=== PATIENT | male | born 1935 | race Caucasian/White ===

== ENCOUNTER 2016-09-15 14:09 | Inpatient (IN) | payer OTHER, MEDICARE ==
[~2016-09-15] VITALS: Ht 172.7 cm; Wt 71.5 kg
[2016-09-15 17:14] VITALS: BP 150/95; PULSE 70; RESP 18; TEMP 98.2; O2SAT 96
[2016-09-15 19:00] VITALS: BP 138/94; PULSE 69; PULSE 70; RESP 18; TEMP 98.6; O2SAT 95
[2016-09-15 20:00] VITALS: PULSE 68
[2016-09-15] MEDS ORDERED: ACET325T PO (20:08)
[2016-09-15] MEDS ORDERED: SODI0.9I29 IV FLUSH (20:08)
[2016-09-15] MEDS ORDERED: PANT40TA3 PO (20:08)
[2016-09-15] MEDS ORDERED: LEVO150T7 PO (20:08)
[2016-09-15] MEDS ORDERED: LEVO1INJ IV (20:08)
[2016-09-15] MEDS ORDERED: ONDA4SOL PO (20:08)
[2016-09-15] MEDS ORDERED: [UNRECOGNIZED DRUG - CODE] IV (20:28)
[2016-09-15] MEDS ORDERED: ACET20SO3 NEB (20:28)
[2016-09-15] MEDS ORDERED: LANTUS2P SQ (20:28)
[2016-09-15] MEDS ORDERED: LEVA.63I NEB (20:28)
[2016-09-15] MEDS ORDERED: ATOR20TA15 PO (20:28)
[2016-09-15] MEDS ORDERED: APIX5TAB PO (20:28)
[2016-09-15] MEDS ORDERED: FLOR250C PO (20:28)
[2016-09-15] MEDS ORDERED: PROS5TAB PO (20:28)
[2016-09-15] MEDS ORDERED: FURO40TA IV (20:28)
[2016-09-15] MEDS ORDERED: ACET250T3 IV (20:28)
[2016-09-15] MEDS ORDERED: NOVOLOGP2 SQ (20:28)
[2016-09-15 21:00] VITALS: PULSE 68
[2016-09-15 22:00] VITALS: PULSE 70
[2016-09-15 23:00] VITALS: BP 122/80; PULSE 70; RESP 16; TEMP 98.4; O2SAT 97
[2016-09-15] MEDS ORDERED: ONDANSETRON HCL 4 MG/5 ML UDC PO PRN (23:00)
[2016-09-15] MEDS ORDERED: PILL SPLITTER OTHER PRN (23:15)
[2016-09-15] MEDS: methylPREDNISolone SOD SUCC 40 MG/1 ML VIAL IV SCH (23:26)
[2016-09-15] MEDS: SACUBITRIL/VALSARTAN 49 MG-51 MG TAB PO SCH (23:26)
[2016-09-15] MEDS: SOTALOL HCL 80 MG TAB PO SCH (23:27)
[2016-09-16] VITALS (26 sets, daily range): BP systolic 102–144; BP diastolic 71–94; PULSE 66–71; RESP 16–19; TEMP 97.3–98.6; O2SAT 92–99
--- NOTE | 2016-09-16 00:40 | HHI.HP ---
[facility] Service [facility] Primary Care Physician Rupal Okeefe MD Admission Diagnosis Diagnoses: (1) Non-sustained ventricular tachycardia (2) History of pneumonia Chief Complaint: ventricular tachycardia Travel History International Travel<30 Days: No Contact w/Intl Traveler <30 Da: No History of Present Illness Mr. Teran is an 81 year-old male with a past medical history of recent respiratory failure secondary to pneumonia, cardiomyopathy with EF 15 - 19%, CAD , cardiac stents, and AICD/pacemaker who transferred from [facility] for recurrent ventricular tachycardia s/p AICD adjustments and discharge. The patient has been seen by Dr. Calderon, publicist. The patient is seen in his hospital room. The patient was admitted to [facility] 09/03 for acute respiratory failure and bilateral pneumonia and required bipap on admission - didn't require intubation. The patient was hospitalized in May and June 2016 with similar symptoms. 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 The patient had slow ventricular tachycardia for past two nights. The AICD tech made adjustments to have AICD fire at a lower heart rate on the first night and on the second night, the patient required sedation and the tech for AICD set the device to deliver a shock with successful rhythm conversion. The patient is here to determine if the v tach can be controlled with lower AICD threshold and medications or whether he will he require an ablation. The patient and his were previously told ablation would be too dangerous but, now, without amiodarone, there's some concern that ablation may be mandatory. A bronchoscopy has not been performed; Dr. Gonsales and Dr. Briceño who saw the patient at [facility] felt the bronchoscopy would be too risky. Therefore, there has been no tissue diagnosis of pulmonary fibrosis. Dr. Galindo sees the patient as an outpatient but does not round at [facility]. The patient adamantly denies any history of COPD. Last stress test was summer 2015. Generalized weakness from May and June 2016 hospitalizations. Reports fatigue but denies fever. Reports chronic cough and chronic "phlegm" production ; patient is back at baseline. Denies diabetes mellitus, COPD, liver problems, blood clots: PE, CVA, DVT; hypertension has resolved- off medications for BP x several weeks. Review of Systems Except as stated in HPI: all other systems reviewed are Neg Past Family Social History Past Medical History Ventricular tachycardia - sustained Cardiomyopathy - EF 15 - 19% Atrial fibrillation - takes Eliquis Sick sinus syndrome [place] 2006 - PM Hypothyroidism Renal insufficiency BPH Patient denies history of COPD . Past Surgical History Coronary stents x 5 PM 2006 AICD/PM 2009 . Reported Medications Reported Meds & Active Scripts Active Reported Proscar (Finasteride) 5 Mg Tab 5 Mg PO DAILY Do not crush. Xopenex Neb (Levalbuterol HCl) 0.63 Mg/3 Ml Neb 0.63 Mg NEB Q4HR NEB Methylprednisolone Sod Succinate Inj (Methylprednisolone Sodium Succinate) 40 Mg Inj 40 Mg IV Q12H Novolog Inj (Insulin Aspart) 1,000 Unit/10 Ml Vial 0 SQ DIRECTED Sliding Scale as directed. Lantus Inj (Insulin Glargine) 1,000 Unit/10 Ml Vial 10 Units SQ HS Eliquis (Apixaban) 5 Mg Tab 5 Mg PO BID Acetylcysteine Liq/Neb (Acetylcysteine) 200 mg/ml Soln 4 Ml NEB BID NEB Acetazolamide 250 Mg Tab 500 Mg IV DAILY Florastor (Saccharomyces Boulardii) 250 Mg Cap 500 Mg PO BID Furosemide 40 Mg Tab 40 Mg IV 06,18 Atorvastatin (Atorvastatin Calcium) 20 Mg Tab 20 Mg PO HS Levofloxacin Inj 250 Mg/50 Ml Bagp 250 Mg IV Q24H Sodium Chloride Flush (Sodium Chloride) 0.9 % Inj 2 Ml IV FLUSH BID Levothyroxine (Levothyroxine Sodium) 150 Mcg Tab 150 Mcg PO DAILY PRN Acetaminophen 325 Mg Tab 325 Mg PO Q4-6H PRN Ondansetron Liq (Ondansetron HCl) 4 Mg/5 Ml Soln 4 Mg PO Q8H PRN Pantoprazole (Pantoprazole Sodium) 40 Mg Tab 40 Mg PO DAILY 30 Days Allergies: Coded Allergies: Penicillin (Verified Allergy, Unknown, UNSURE, 09/15/16) Active Ordered Medications Current Medications Acetazolamide (Diamox) 500 mg DAILY PO ; Start 09/16/16 at 09:00 Atorvastatin Calcium (Lipitor) 20 mg HS PO ; Start 09/16/16 at 21:00 Finasteride (Proscar) 5 mg DAILY PO ; Start 09/16/16 at 09:00 Furosemide (Lasix) 40 mg DAILY@06,18 PO ; Start 09/16/16 at 06:00 Insulin Detemir (Levemir Inj) 10 units HS SQ ; Start 09/16/16 at 21:00 Levothyroxine Sodium (Synthroid) 150 mcg DAILY@0600 PO ; Start 09/16/16 at 06:00 Methylprednisolone Sodium Succinate (SoluMEDROL INJ) 40 mg Q12HR IV Last administered on 09/15/16 23:26; Start 09/15/16 at 23:00 Ondansetron HCl (Zofran Liq) 4 mg Q8H PRN PO NAUSEA OR VOMITING; Start at 23:00 Pantoprazole Sodium (Protonix) 40 mg DAILY PO ; Start 09/16/16 at 09:00 Non-Formulary Medication 500 mg BID PO NS; Start 09/16/16 at 09:00; Status UNV Sacubitril/ Valsartan (Entresto 49-51 Mg) 1 tab BID PO Last administered on 23:26; Start 09/15/16 at 23:00 Sotalol HCl (Betapace) 120 mg Q12HR PO Last administered on 09/15/16 23:27; Start 09/15/16 at 23:00 Miscellaneous (Pill Splitter) 1 ea UNSCH PRN OTHER SEE LABEL COMMENTS; Start at 23:15 . Family History Mother CVA, diabetes Father CHF . Social History Tobacco: never smoked . Physical Exam Vital Signs Vital Signs Date Time Temp Pulse Resp B/P Pulse Ox O2 Delivery O2 Flow Rate FiO2 09/15/16 23:00 98.4 70 16 122/80 97 09/15/16 19:00 98.6 70 18 138/94 95 09/15/16 17:14 98.2 70 18 150/95 96 Physical Exam GENERAL: This is a pleasant, extremely [place] elderly male patient, in no apparent distress. SKIN: No rashes, ecchymoses or lesions. Cool and dry. HEAD: Atraumatic. Normocephalic. EYES: No scleral icterus. No injection or drainage. ENT: Nose without bleeding, purulent drainage. NECK: Trachea midline. No JVD or lymphadenopathy. CARDIOVASCULAR: Regular rate and rhythm without murmurs, gallops, or rubs. RESPIRATORY: Breath sounds equal bilaterally. No wheezes or rhonchi. Bibasilar crepitations at the base of lungs. GASTROINTESTINAL: Abdomen soft, non-tender, nondistended. No guarding. : mazariegos catheter in place draining clear yellow urine. MUSCULOSKELETAL: Extremities without clubbing, cyanosis, or edema. No calf tenderness. NEUROLOGICAL: Awake and alert. Motor and sensory grossly within normal limits. Normal speech. . Assessment and Plan Problem List: (1) Non-sustained ventricular tachycardia ICD Code: I47.2 Status: Resolved (2) History of pneumonia ICD Code: Z87.01 Status: Resolved Assessment and Plan Non-Sustained ventricular tachycardia - Cardiology consulted - Dr. 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 Galindo - patient doesn't appear to clinically have pneumonia at this time; will not place on antibiotics - defer further management to Dr. Galindo Sacral skin tears x 3 - consult wound care nurse Mazariegos Catheter x 13 days - will need a voiding trial DVT prophylaxis -SCDs Written by Shaye Carpenter, acting as scribe for Dr. Wilson on 09/16/16 at 00:57. The documentation accurately reflects the work performed [id number] by me on [id number] patient was changed to inpatient status Discussed Condition With RN, patient, and patient's . Shaye Carpenter Sep 16, 2016 00:40 Marc Wilson MD Sep 23, 2016 08:52
[2016-09-16] MEDS: FUROSEMIDE 40 MG TAB PO SCH ×2 (05:32→17:13)
[2016-09-16] MEDS: LEVOTHYROXINE SODIUM 150 MCG TAB PO SCH (05:32)
[2016-09-16 05:55] LABS: AUTOMATED NEUTROPHIL # 22.3 TH/MM3 (1.8-7.7); EOSINOPHIL % 0.1 % (0.0-4.0); HEMATOCRIT 36.7 % (39.0-51.0); HEMO FLAGS DIFF FINAL; LYMPH % 1.3 % (9.0-44.0); LYMPHOCYTE # 0.3 TH/MM3 (1.0-4.8); MEAN CELL VOLUME 87.1 FL (80.0-100.0); MEAN CORPUSCULAR HEMOGLOBIN 28.4 PG (27.0-34.0); MEAN CORPUSCULAR HGB CONC 32.6 % (32.0-36.0); MONO % 2.5 % (0.0-8.0); NEUT % 96.1 % (16.0-70.0); PLATELET COUNT 126 TH/MM3 (150-450); RED BLOOD COUNT 4.21 MIL/MM3 (4.50-5.90); RED CELL DISTRIBUTION WIDTH 17.6 % (11.6-17.2); WHITE BLOOD COUNT 23.2 TH/MM3 (4.0-11.0)
[2016-09-16 06:09] LABS: INTERNATIONAL NORMALIZED RATIO 1.2 RATIO; PROTHROMBIN TIME - PATIENT 13.5 SEC (9.8-11.6)
[2016-09-16 06:19] LABS: ALT (GPT) 48 U/L (12-78); ANION GAP 9 MEQ/L (5-15); AST (GOT) 20 U/L (15-37); BICARBONATE 26.5 MEQ/L (21.0-32.0); BLOOD UREA NITROGEN 44 MG/DL (7-18); CHLORIDE 105 MEQ/L (98-107); GLOMERULAR FILTRATION RATE 66 ML/MIN (>89); POTASSIUM 3.5 MEQ/L (3.5-5.1); SODIUM (NA) 140 MEQ/L (136-145)
[2016-09-16 06:21] LABS: ALKALINE PHOSPHATASE 75 U/L (45-117); TOTAL BILIRUBIN ADULT 0.6 MG/DL (0.2-1.0)
--- NOTE | 2016-09-16 06:22 | MB ---
cc: LATHA CHARLTON M.D. DATE OF CONSULTATION 09/15/2016 REASON FOR CONSULTATION Ventricular tachycardia. HISTORY OF PRESENT ILLNESS Mr. Teran is an 81-year-old gentleman with a history of coronary artery disease, congestive heart failure, cardiomyopathy, previous nuclear study in February of 2016 with an ejection fraction of around 19%. The gentleman was previously evaluated in my office at the request of for ventricular tachycardia ablation. At that point the gentleman declined. He was concerned about bleeding and the risks of the surgery. In the past couple of weeks the gentleman was admitted on multiple occasions. He was at [facility] for at least 12 days due to pneumonia. He had two episodes of ventricular tachycardia that did not respond to ATP, that required shock, one of them last night. I was called by to discuss with him. Subsequently the gentleman was transferred to this center. I was called for evaluation. I did talk to the and the children. She was very, very anxious. She is concerned about defibrillatory shock. I did explain to her that just called me today to discuss the case. I did recommend that the patient be medically managed at [facility] but ultimately the patient was transferred to my service. I was not able to schedule the patient for the past 2 weeks and, for now because the patient has infection, on antibiotics, he will need evaluation by Pulmonary as well by Internal Medicine before any procedure attempted. Also, the gentleman took Eliquis this morning. We will have to wait at least 48 hours before any procedure attempted. The chart was reviewed. The patient was evaluated. ALLERGY PENICILLIN. SOCIAL HISTORY Negative for smoking and drinking. FAMILY HISTORY Noncontributory to his current medical condition. MEDICATIONS 1. Finasteride. 2. Methylprednisone. 3. Acetaminophen. 4. Eliquis. 5. Proscar. 6. Atorvastatin. 7. Insulin. 8. Protonix. 9. Levaquin. 10. He was on piperacillin and tazobactam also. REVIEW OF SYSTEMS He refers no chest pain or discomfort. PHYSICAL EXAMINATION GENERAL: Alert, fully oriented. VITAL SIGNS: His blood pressure is 150/91, pulse is 70, respiratory rate 18. LUNGS: Ventilated. CARDIOVASCULAR: S1, S2. Regular. No gallop. There is a systolic ejection murmur. ABDOMEN: Soft. No mass. No bruit. EXTREMITIES: No edema. ELECTROCARDIOGRAM Performed at [facility], indicated V-pacing. ASSESSMENT AND RECOMMENDATIONS Mr. Teran was in [facility] for close to two weeks with pneumonia, heart failure, COPD. He is on antibiotics. He was no Lovenox, Eliquis initiated. Apparently the gentleman was kept n.p.o. by the staff at [facility] without any discussion with me. I had a very, very long conversation. I spent over an hour discussing the case with the patient and his . His is concerned about the patient morbidity, if that happens who will take care of him. I explained the patient is in the hospital. Also the patient was seen in the past and the patient refused ventricular tachycardia ablation. Because of these episodes of recurrent tachyarrhythmia and the gentleman has an ejection fraction between 13-19% and he is not able to tolerate amiodarone. Amiodarone was discontinued because of pulmonary issues. At this point I am going to initiate sotalol at 120 mg twice a day. Blood pressure is high. The patient was already initiated on in February. Apparently he is not on the medication and will be initiated. I need a BMP as well as CBC. Possible nuclear stress study will be ordered in the morning. For now, medical management. Ablation will be performed if the gentleman is in ventricular tachycardia at some point now. MD SHERRI Hassan/LUDMILA /11:06 PM /5:52 AM
--- NOTE | 2016-09-16 08:36 | HHI.PR ---
Subjective Remarks Tired Objective Vital Signs Date Time Temp Pulse Resp B/P Pulse Ox O2 Delivery O2 Flow Rate FiO2 09/16/16 06:00 69 09/16/16 05:00 69 09/16/16 04:00 69 09/16/16 03:00 69 09/16/16 03:00 98.0 69 17 115/76 95 09/16/16 02:00 71 09/16/16 01:00 68 09/16/16 00:00 70 09/15/16 23:00 70 09/15/16 23:00 98.4 70 16 122/80 97 09/15/16 22:00 70 09/15/16 21:00 68 09/15/16 20:00 68 09/15/16 19:00 98.6 70 18 138/94 95 09/15/16 19:00 69 09/15/16 17:14 98.2 70 18 150/95 96 I/O 09/15/16 09/15/16 09/15/16 09/16/16 09/16/16 09/16/16 07:00 15:00 23:00 07:00 15:00 23:00 Intake Total 835 ml Output Total 700 ml Balance 135 ml Intake Oral 835 ml Output Urine Total 700 ml Result Diagram: 09/16/1652009/16/16520 Imaging Alert, fully oriented Lungs: ventilated Heart: S1, S2 regular, no gallop Abdomen: soft, no mass Ext: no edema Current Medications Medications (Trade) Dose Ordered Sig/Taylor Route Start Time Stop Time Status Last Admin (Diamox) 500 mg DAILY PO 09/16/16 09:00 (Lipitor) 20 mg HS PO 09/16/16 21:00 (Proscar) 5 mg DAILY PO 09/16/16 09:00 (Lasix) 40 mg DAILY@06,18 PO 09/16/16 06:00 09/16/16 05:32 (Levemir Inj) 10 units HS SQ 09/16/16 21:00 (Synthroid) 150 mcg DAILY@0600 PO 09/16/16 06:00 09/16/16 05:32 (SoluMEDROL INJ) 40 mg Q12HR IV 09/15/16 23:00 09/15/16 23:26 (Zofran Liq) 4 mg Q8H PRN PO 09/15/16 23:00 (Protonix) 40 mg DAILY PO 09/16/16 09:00 Patient Own Medication PT OWN MED: [Florast... BID PO 09/17/16 09:00 Future Hold (Entresto 49-51 Mg) 1 tab BID PO 09/15/16 23:00 09/15/16 23:26 (Betapace) 120 mg Q12HR PO 09/15/16 23:00 09/15/16 23:27 (Pill Splitter) 1 ea UNSCH PRN OTHER 09/15/16 23:15 Assessment and Plan Problem List: (1) Sustained ventricular tachycardia Status: Acute Plan: Stable. No VT recorded last night. Tolerating sotalol very well. Toprol XL will be added For now, medical management If there is an other episode then ablation will be considered. (2) Congestive heart failure Status: Acute Plan: On optimal medical management now Follow up by pulmonary Case again discussed extensively with him and . Martin Calderon MD Sep 16, 2016 08:35
--- NOTE | 2016-09-16 09:06 | MB ---
cc: JOSIE GALINDO M.D. DATE OF CONSULTATION 09/16/2016 REASON FOR CONSULTATION COPD. Pulmonary fibrosis. HISTORY OF PRESENT ILLNESS Mr. Teran is an 81-year-old male with known history of COPD, pulmonary fibrosis, congestive heart failure of severe degree, ejection fraction between 15 and 19%, admitted to [facility] in [place] for pneumonia treated with antibiotics with improvement. However, he did have recurrent ventricular arrhythmia, transferred to this hospital for same. He is followed by Dr. Calderon who is seeing him at this time. PAST MEDICAL HISTORY 1. COPD. 2. Pulmonary fibrosis. 3. Atrial fibrillation. 4. Congestive heart failure. 5. Ventricular tachycardia. 6. Hypothyroidism. 7. Renal insufficiency. 8. BPH. 9. Hypothyroidism. PAST SURGICAL HISTORY Had coronary artery bypass surgery in the past. MEDICATIONS 1. Xopenex. 2. Proscar. 3. IV steroids. 4. Insulin therapy. 5. Eliquis. 6. Lasix. 7. Atorvastatin. 8. Levofloxacin. 9. Levothyroxine. 10. Pantoprazole. ALLERGIES PENICILLIN. FAMILY HISTORY Noncontributory. SOCIAL HISTORY Never smoked, never drank. FAMILY HISTORY Positive for heart disease, stroke, diabetes. REVIEW OF SYSTEMS A 12-point review of systems as per HPI and Past History, otherwise negative. PHYSICAL EXAMINATION VITAL SIGNS: Temperature 98, pulse 70, respirations 18, blood pressure 150/70, oxygen saturation 95% on 2 liters oxygen nasal cannula. HEENT: Exam unremarkable. Eyes without icterus. NECK: Without adenopathy or thyroid enlargement. Central trachea. CHEST: A few scattered rhonchi as bases. CARDIAC EXAM: PMI 6th left space outside the midclavicular line. A 2/6 ejection systolic murmur left sternal border. S1-S2 audible. Positive S3. ABDOMEN: Lax. Bowel sounds audible. Liver two fingerbreadths below the right costal margin. EXTREMITIES: Trace edema. DATA Chest x-ray pending. White count 23,000, hemoglobin 12, hematocrit 36, platelets 126,000. Sodium 140, potassium 3.5, BUN 44, creatinine 1.0. IMPRESSION 1. Pneumonia, improved. 2. Congestive heart failure. 3. Ventricular arrhythmia. 4. COPD. 5. Mild renal insufficiency. 6. Diabetes mellitus. PLAN 1. The patient will be maintained on oxygen therapy as needed. 2. We will follow up his chest x-ray, obtain pulmonary functions. 3. His white count need be followed and, depending on progress, proceed accordingly. 4. He is followed by Cardiology for his cardiac arrhythmia. I do thank you for asking me to partake in Mr. Teran's care. Sincerely Josie Galindo MD WWW/LUDMILA /8:17 AM /8:42 AM
[2016-09-16 10:13] LABS: BLOOD GAS BASE EXCESS -3.4 mmol/L (-2-2); BLOOD GAS CARBOXYHEMOGLOBIN 2.1 % (0-4); BLOOD GAS HCO3 20 mmol/L (22-26); BLOOD GAS O2 HGB SATURATION 91 % (90-100); BLOOD GAS OXYGEN CONTENT 17.5 Vol % (12.0-20.0); BLOOD GAS PCO2 31 mmHg (38-42); BLOOD GAS PO2 71 mmHg (61-120); BLOOD GAS TOTAL HGB 13.7 G/DL (12.0-16.0); CRITICAL VALUE NO; DRAW SITE RT RADIAL; FIO2 21 %; NUMBER OF ARTERIAL PUNCTURES 1; STAT NO; TEMP CORR TO 98.6; ULNAR PULSE PRESENT
[2016-09-16] MEDS: methylPREDNISolone SOD SUCC 40 MG/1 ML VIAL IV SCH ×2 (10:21→22:06)
[2016-09-16] MEDS: FINASTERIDE 5 MG TAB PO SCH (10:21)
[2016-09-16] MEDS: acetaZOLAMIDE 250 MG TAB PO SCH (10:22)
[2016-09-16] MEDS: SACUBITRIL/VALSARTAN 49 MG-51 MG TAB PO SCH ×2 (10:23→22:07)
[2016-09-16] MEDS: PANTOPRAZOLE SOD 40 MG DELAYED RELEASE TAB PO SCH (10:23)
[2016-09-16] MEDS: METOPROLOL SUCCINATE 50 MG EXTENDED RELEASE TAB PO SCH (10:23)
[2016-09-16] MEDS: SOTALOL HCL 80 MG TAB PO SCH ×2 (10:23→22:06)
--- NOTE | 2016-09-16 10:35 | RADRPT ---
EXAM DATE/TIME: 09/16/2016 09:45 [place] COMPARISON: No previous studies available for comparison. INDICATIONS : Short of breath. MEDICAL HISTORY : Chronic obstructive pulmonary disease. SURGICAL HISTORY : Pacemaker. ENCOUNTER: Initial ACUITY: 1 day PAIN SCORE: 0/10 LOCATION: Bilateral chest FINDINGS: The heart is moderately enlarged. supervisor coffee box superimposes upon the left chest and there are 3 electrodes extending into the heart. Multifocal patchy areas of non-consolidative infiltrate throu ghout the right lung and in the left lower lung. No obscuration of either hemidiaphragm or either he art border. Mild tortuosity descending thoracic aorta. CONCLUSION: Patchy areas of infiltrate throughout the right lung and left lower lung and cardiomegaly. The appea anderson is nonspecific and could be due to either infectious or cardiogenic causes. Harry Be MD on September 16, 2016 at 10:33 Board Certified Radiologist. This report was verified electronically.
--- NOTE | 2016-09-16 13:52 | HHI.PR ---
Subjective Remarks Multiple pacer spikes seenon telemetry patient denies cp patient c/o dyspnea on exertion Patient having heart rate down to 40's Objective Vitals Vital Signs Date Time Temp Pulse Resp B/P Pulse Ox O2 Delivery O2 Flow Rate FiO2 09/16/16 13:06 69 09/16/16 12:00 68 09/16/16 11:00 97.3 70 18 102/72 96 09/16/16 11:00 71 09/16/16 10:00 68 09/16/16 09:00 70 09/16/16 08:30 97.3 66 19 144/94 92 09/16/16 08:00 69 09/16/16 07:00 69 09/16/16 06:00 69 09/16/16 05:00 69 09/16/16 04:00 69 09/16/16 03:00 69 09/16/16 03:00 98.0 69 17 115/76 95 09/16/16 02:00 71 09/16/16 01:00 68 09/16/16 00:00 70 09/15/16 23:00 70 09/15/16 23:00 98.4 70 16 122/80 97 09/15/16 22:00 70 09/15/16 21:00 68 09/15/16 20:00 68 09/15/16 19:00 98.6 70 18 138/94 95 09/15/16 19:00 69 09/15/16 17:14 98.2 70 18 150/95 96 I/O 09/15/16 09/15/16 09/15/16 09/16/16 09/16/16 09/16/16 07:00 15:00 23:00 07:00 15:00 23:00 Intake Total 835 ml Output Total 700 ml Balance 135 ml Intake Oral 835 ml Output Urine Total 700 ml Result Diagram: 09/16/16 0521 09/16/16 0521 Imaging Last Impressions Chest X-Ray 09/16/16 0000 Signed Impressions: Service Date/Time: August 09:45 - CONCLUSION: Patchy areas of infiltrate throughout the right lung and left lower lung and cardiomegaly. The appearance is nonspecific and could be due to either infectious or cardiogenic causes. Harry Be MD Objective Remarks GENERAL: This is a pleasant, extremely [place] elderly male patient, in no apparent distress. SKIN: Two small fissures to medial gluteal cleft that are moisture and friction related.Periwound noted with denuded blanchable erythema. Patient also noted with small area of resolving moisture related partial thickness skin loss to R medial buttock.No pressure injuries seen at this time. HEAD: Atraumatic. Normocephalic. EYES: No scleral icterus. No injection or drainage. ENT: Nose without bleeding, purulent drainage. NECK: Trachea midline. No JVD or lymphadenopathy. CARDIOVASCULAR: Regular rate and rhythm without murmurs, gallops, or rubs. RESPIRATORY: Breath sounds equal bilaterally. No wheezes or rhonchi. Bibasilar crepitations at the base of lungs. GASTROINTESTINAL: Abdomen soft, non-tender, nondistended. No guarding. : mazariegos catheter in place draining clear yellow urine. MUSCULOSKELETAL: Extremities without clubbing, cyanosis, or edema. No calf tenderness. NEUROLOGICAL: Awake and alert. Motor and sensory grossly within normal limits. Normal speech. Medications and IVs Current Medications Medications (Trade) Dose Ordered Sig/Taylor Route Start Time Stop Time Status Last Admin (Diamox) 500 mg DAILY PO 09/16/16 09:00 09/16/16 10:22 (Lipitor) 20 mg HS PO 09/16/16 21:00 (Proscar) 5 mg DAILY PO 09/16/16 09:00 09/16/16 10:21 (Lasix) 40 mg DAILY@06,18 PO 09/16/16 06:00 09/16/16 05:32 (Levemir Inj) 10 units HS SQ 09/16/16 21:00 (Synthroid) 150 mcg DAILY@0600 PO 09/16/16 06:00 09/16/16 05:32 (SoluMEDROL INJ) 40 mg Q12HR IV 09/15/16 23:00 09/16/16 10:21 (Zofran Liq) 4 mg Q8H PRN PO 09/15/16 23:00 (Protonix) 40 mg DAILY PO 09/16/16 09:00 09/16/16 10:23 Patient Own Medication PT OWN MED: [Florast... BID PO 09/17/16 09:00 Future Hold (Entresto 49-51 Mg) 1 tab BID PO 09/15/16 23:00 09/16/16 10:23 (Betapace) 120 mg Q12HR PO 09/15/16 23:00 09/16/16 10:23 (Pill Splitter) 1 ea UNSCH PRN OTHER 09/15/16 23:15 (Toprol Xl) 50 mg DAILY PO 09/16/16 09:00 09/16/16 10:23 Urinary Catheter: Yes Assessment to: Remove Vascular Central Line Catheter: No A/P Problem List: (1) Non-sustained ventricular tachycardia ICD Code: I47.2 Status: Acute Plan: Non-Sustained ventricular tachycardia - Cardiology consulted - appreciate Dr Calderon recommendations - Stable. No VT recorded last night. - Tolerating sotalol very well. - Toprol XL added by cardiology. (2) History of pneumonia ICD Code: Z87.01 Status: Resolved Plan: Patient has leukocytosis of 23 Patchy area of infiltrate throughout the right lung, left lower lung cardiomegaly. Pulmonary following. Appreciate recommendations. Routine supplemental oxygen to keep oxygen saturation more than 92% (3) Wound of skin ICD Code: R23.8 Status: Acute Plan: - appreciate wound care evaluation Two small fissures to medial gluteal cleft that are moisture and friction related.Periwound noted with denuded blanchable erythema. Patient also noted with small area of resolving moisture related partial thickness skin loss to R medial buttock.No pressure injuries seen. - Calazime barrier cream bid and leave wound open to air. (4) Hypothyroidism ICD Code: E03.9 Status: Acute Plan: On levothyroxine. Check TSH. (5) Atrial fibrillation ICD Code: I48.91 Status: Chronic Plan: rate controlled. Continue with sotalol, metoprolol XL. Ventricular fibrillation with multiple pacer spikes. Follow-up cranial treatment recommendations. Lul Herron MD Sep 16, 2016 13:52
[2016-09-16] MEDS: ATORVASTATIN 20 MG TAB PO SCH (22:07)
[2016-09-16] MEDS: INSULIN DETEMIR 100 UNITS/ML VIAL SQ SCH (22:16)
[2016-09-17] VITALS (25 sets, daily range): BP systolic 102–123; BP diastolic 75–86; PULSE 68–94; RESP 16–18; TEMP 97.5–97.8; O2SAT 95–97
[2016-09-17] MEDS: FUROSEMIDE 40 MG TAB PO SCH ×2 (05:34→17:40)
[2016-09-17] MEDS: LEVOTHYROXINE SODIUM 150 MCG TAB PO SCH (05:34)
[2016-09-17 07:08] LABS: AUTOMATED NEUTROPHIL # 19.2 TH/MM3 (1.8-7.7); BASOPHIL % 0.2 % (0.0-2.0); HEMATOCRIT 37.3 % (39.0-51.0); LYMPH % 2.2 % (9.0-44.0); LYMPHOCYTE # 0.5 TH/MM3 (1.0-4.8); MEAN CELL VOLUME 86.3 FL (80.0-100.0); MEAN CORPUSCULAR HEMOGLOBIN 29.1 PG (27.0-34.0); MEAN CORPUSCULAR HGB CONC 33.7 % (32.0-36.0); NEUT % 94.6 % (16.0-70.0); PLATELET COUNT 113 TH/MM3 (150-450); RED BLOOD COUNT 4.33 MIL/MM3 (4.50-5.90); RED CELL DISTRIBUTION WIDTH 17.5 % (11.6-17.2); WHITE BLOOD COUNT 20.4 TH/MM3 (4.0-11.0)
[2016-09-17 07:32] LABS: HEMO FLAGS AUTO DIFF
[2016-09-17 07:52] LABS: ALKALINE PHOSPHATASE 72 U/L (45-117); ALT (GPT) 57 U/L (12-78); ANION GAP 7 MEQ/L (5-15); AST (GOT) 11 U/L (15-37); BLOOD UREA NITROGEN 40 MG/DL (7-18); CHLORIDE 103 MEQ/L (98-107); GLOMERULAR FILTRATION RATE 79 ML/MIN (>89); MAGNESIUM 2.6 MG/DL (1.5-2.5); POTASSIUM 3.4 MEQ/L (3.5-5.1); SODIUM (NA) 139 MEQ/L (136-145); TOTAL BILIRUBIN ADULT 0.7 MG/DL (0.2-1.0)
[2016-09-17 08:23] LABS: BANDS 2 % (0-6); METAMYELOCYTES 2 % (0-1); NEUTROPHIL # MANUAL DIFF 18.8 TH/MM3 (1.8-7.7); POLYS (SEG NEUTROPHILS) 88 % (16-70); WBC DIFF SAMPLE 100
[2016-09-17 08:25] LABS: PLATELET ESTIMATE SMEAR LOW (NORMAL); PLATELET MORPHOLOGY NORMAL (NORMAL)
[2016-09-17 08:26] LABS: SCAN/DIFF FINAL DIFF MANUAL
[2016-09-17] MEDS ORDERED: FLORASTOR PO SCH (09:00)
[2016-09-17] MEDS: acetaZOLAMIDE 250 MG TAB PO SCH (09:27)
[2016-09-17] MEDS: methylPREDNISolone SOD SUCC 40 MG/1 ML VIAL IV SCH (09:27)
[2016-09-17] MEDS: FINASTERIDE 5 MG TAB PO SCH (09:28)
[2016-09-17] MEDS: PANTOPRAZOLE SOD 40 MG DELAYED RELEASE TAB PO SCH (09:28)
[2016-09-17] MEDS: METOPROLOL SUCCINATE 50 MG EXTENDED RELEASE TAB PO SCH (09:28)
[2016-09-17] MEDS: SOTALOL HCL 80 MG TAB PO SCH ×2 (09:29→21:16)
[2016-09-17] MEDS: SACUBITRIL/VALSARTAN 49 MG-51 MG TAB PO SCH ×2 (09:29→21:16)
[2016-09-17] MEDS ORDERED: POTASSIUM CHLORIDE 20 MEQ CONTROLLED RELEASE TAB PO ONE (12:30)
--- NOTE | 2016-09-17 13:05 | HHI.PR ---
Subjective Remarks fu for VT, leukocytosis, pulmonary fibrosis, COPD Patient's is very upset because she feels that her questions have answered Patient's states she feels her is getting weaker She also states that last night he had an episode where he was ahaving abdominal spasms, this was resolved after people from [employer] came and fixed the issue. Patient denies cp/sob no fevers or chills reported no further abdominal pain Objective Vitals Vital Signs Date Time Temp Pulse Resp B/P Pulse Ox O2 Delivery O2 Flow Rate FiO2 09/17/16 08:00 97.5 70 18 123/86 95 09/17/16 07:00 70 09/17/16 06:00 70 09/17/16 05:00 69 09/17/16 04:00 69 09/17/16 03:00 69 09/17/16 03:00 97.8 70 17 112/76 96 09/17/16 02:00 79 09/17/16 01:00 94 09/17/16 00:00 68 09/16/16 23:00 98.4 69 18 114/71 94 09/16/16 23:00 70 09/16/16 22:00 68 09/16/16 21:00 68 09/16/16 20:00 68 09/16/16 19:00 98.6 70 18 103/72 99 09/16/16 19:00 70 09/16/16 18:00 68 09/16/16 17:04 69 09/16/16 16:00 68 09/16/16 15:50 98.5 70 16 105/73 99 09/16/16 15:00 69 09/16/16 14:14 69 09/16/16 13:06 69 I/O 09/16/16 09/16/16 09/16/16 09/17/16 09/17/16 09/17/16 07:00 15:00 23:00 07:00 15:00 23:00 Intake Total 835 ml 360 ml 480 ml Output Total 700 ml 1150 ml 450 ml Balance 135 ml -790 ml 30 ml Intake Oral 835 ml 360 ml 480 ml Output Urine Total 700 ml 1150 ml 450 ml # Bowel Movements 1 Result Diagram: 09/17/16 0633 09/17/16 0633 Imaging Last Impressions Chest X-Ray 09/16/16 0000 Signed Impressions: Service Date/Time: August 09:45 - CONCLUSION: Patchy areas of infiltrate throughout the right lung and left lower lung and cardiomegaly. The appearance is nonspecific and could be due to either infectious or cardiogenic causes. Harry Be MD Objective Remarks GENERAL: This is a pleasant, extremely [place] elderly male patient, in no apparent distress, eating lunch. SKIN: Two small fissures to medial gluteal cleft that are moisture and friction related.Periwound noted with denuded blanchable erythema. Patient also noted with small area of resolving moisture related partial thickness skin loss to R medial buttock.No pressure injuries seen at this time. HEAD: Atraumatic. Normocephalic. EYES: No scleral icterus. No injection or drainage. ENT: Nose without bleeding, purulent drainage. NECK: Trachea midline. No JVD or lymphadenopathy. CARDIOVASCULAR: Regular rate and rhythm without murmurs, gallops, or rubs. RESPIRATORY: Breath sounds equal bilaterally. No wheezes or rhonchi. Bibasilar crepitations at the base of lungs. GASTROINTESTINAL: Abdomen soft, non-tender, nondistended. No guarding. : mazariegos catheter in place draining clear yellow urine. MUSCULOSKELETAL: Extremities without clubbing, cyanosis, or edema. No calf tenderness. NEUROLOGICAL: Awake and alert. Motor and sensory grossly within normal limits. Normal speech. Procedures None Medications and IVs Current Medications Medications (Trade) Dose Ordered Sig/Taylor Route Start Time Stop Time Status Last Admin (Diamox) 500 mg DAILY PO 09/16/16 09:00 09/17/16 09:27 (Lipitor) 20 mg HS PO 09/16/16 21:00 09/16/16 22:07 (Proscar) 5 mg DAILY PO 09/16/16 09:00 09/17/16 09:28 (Lasix) 40 mg DAILY@06,18 PO 09/16/16 06:00 09/17/16 05:34 (Levemir Inj) 10 units HS SQ 09/16/16 21:00 09/16/16 22:16 (Synthroid) 150 mcg DAILY@0600 PO 09/16/16 06:00 09/17/16 05:34 (SoluMEDROL INJ) 40 mg Q12HR IV 09/15/16 23:00 09/17/16 09:27 (Zofran Liq) 4 mg Q8H PRN PO 09/15/16 23:00 (Protonix) 40 mg DAILY PO 09/16/16 09:00 09/17/16 09:28 Patient Own Medication PT OWN MED: [Florast... BID PO 09/17/16 09:00 Hold (Entresto 49-51 Mg) 1 tab BID PO 09/15/16 23:00 09/17/16 09:29 (Betapace) 120 mg Q12HR PO 09/15/16 23:00 09/17/16 09:29 (Pill Splitter) 1 ea UNSCH PRN OTHER 09/15/16 23:15 (Toprol Xl) 50 mg DAILY PO 09/16/16 09:00 09/17/16 09:28 Urinary Catheter: No Vascular Central Line Catheter: No A/P Problem List: (1) Non-sustained ventricular tachycardia ICD Code: I47.2 Status: Acute Plan: Non-Sustained ventricular tachycardia - Cardiology consulted - appreciate Dr Calderon recommendations - Stable. No VT recorded last night. - Tolerating sotalol very well. - Toprol XL added by cardiology. - Discussed case with cardiology - if no further V tach until tomorrow then will DC home. (2) History of pneumonia ICD Code: Z87.01 Status: Resolved Plan: Patient has leukocytosis of 23 Patchy area of infiltrate throughout the right lung, left lower lung cardiomegaly. Pulmonary following. Appreciate recommendations. Good oxygen saturation on room air. repeat CXR today - patient not coughing, no fevers (3) Wound of skin ICD Code: R23.8 Status: Acute Plan: - appreciate wound care evaluation Two small fissures to medial gluteal cleft that are moisture and friction related.Periwound noted with denuded blanchable erythema. Patient also noted with small area of resolving moisture related partial thickness skin loss to R medial buttock.No pressure injuries seen. - Calazime barrier cream bid and leave wound open to air. (4) Hypothyroidism ICD Code: E03.9 Status: Acute Plan: On levothyroxine. TSH within normal range. (5) Atrial fibrillation ICD Code: I48.91 Status: Chronic Plan: rate controlled. Continue with sotalol, metoprolol XL. Ventricular fibrillation with multiple pacer spikes. Fu cardiology recommendations. Pacer was adjusted last night by instrumentation engineering technician. (6) Congestive heart failure ICD Code: I50.9 Status: Chronic Plan: As per cardiology report - Ef 15 to 19%. Seems to be stable. Continue oral lasix. (7) Leukocytosis ICD Code: D72.829 Status: Acute Plan: WBC 23 K on admission Trending down to 20 K today Likely due to steroid use No antibiotic therapy indicated at this time (8) COPD (chronic obstructive pulmonary disease) ICD Code: J44.9 Status: Chronic Plan: Dr Stanley from pulmonary following. I will taper steroids, change several measure to 40 mg IV daily and will possibly discharge tomorrow on prednisone taper. Repeat chest x-ray. (9) Generalized weakness ICD Code: R53.1 Status: Acute Plan: Have very long conversation with the patient's . The patient 5 very concerned that the patient is getting weaker. She also states that they would prefer to take him home. However since the patient is weak and requires help to get up, I explained to her that it is probably better for the patient to be discharged to a rehabilitation center. I will also order physical therapy 7 days a week. Assessment and Plan GI prophylaxis - PPI DVT prophylaxis - SCD's Discharge Planning Possible Dc in am if no further VT's. Problem Qualifiers (1) Hypothyroidism: Qualified Code: E03.9 - Hypothyroidism, unspecified type (2) Atrial fibrillation: Qualified Code: I48.2 - Chronic atrial fibrillation (3) Congestive heart failure: Qualified Code: I50.22 - Chronic systolic congestive heart failure (4) COPD (chronic obstructive pulmonary disease): Qualified Code: J42 - Chronic bronchitis, unspecified chronic bronchitis type Lul Herron MD Sep 17, 2016 13:05
[2016-09-17 16:17] LABS: HEMOGLOBIN A1b 2.4 %; HEMOGLOBIN Ao 81.8 %; HEMOGLOBIN LA1C 2.6 %; HEMOGLOBIN P3 6.7 %
--- NOTE | 2016-09-17 17:19 | EKG ---
Date Performed: 09/16/2016 Time Performed: 19:58:54 PTAGE: 81 years EKG: Ventricular pacing. Pacemaker rhythm - no further analysis Abnormal ECG NO PREVIOUS TRACING DOCTOR: Yanna Otto Interpretating Date/Time 09/17/2016 17:15:19
--- NOTE | 2016-09-17 17:25 | PD.CARD.PN ---
Subjective Subjective Remarks Tired. Easy fatigability with exertion. No CP, dyspnea, dizziness, palpitations, nausea. Objective Medications Item Value Date Time Atorvastatin 20 mg 09/16/16 2100 Calcium HS/PO 09/16/16 220 (Lipitor) Metoprolol 50 mg 09/16/16 0900 Succinate DAILY/PO 09/17/16 0928 (Toprol Xl) Furosemide 40 mg 09/16/16 0600 (Lasix) DAILY@06,18/PO 09/17/16 0534 Sacubitril/ 1 tab 09/15/16 2300 Valsartan BID/PO 09/17/16 0929 (Entresto 49-51 Mg) Sotalol HCl 120 mg 09/15/16 2300 (Betapace) Q12HR/PO 09/17/16 0929 Vital Signs / I&O Vital Signs Date Time Temp Pulse Resp B/P Pulse Ox O2 Delivery O2 Flow Rate FiO2 09/17/16 15:00 69 09/17/16 15:00 97.5 70 16 119/79 96 09/17/16 14:00 68 09/17/16 13:00 68 09/17/16 12:00 97.7 68 17 109/75 97 09/17/16 12:00 68 09/17/16 11:00 68 09/17/16 10:00 68 09/17/16 09:00 68 09/17/16 08:00 97.5 70 18 123/86 95 09/17/16 08:00 70 09/17/16 07:00 70 09/17/16 06:00 70 09/17/16 05:00 69 09/17/16 04:00 69 09/17/16 03:00 69 09/17/16 03:00 97.8 70 17 112/76 96 09/17/16 02:00 79 09/17/16 01:00 94 09/17/16 00:00 68 09/16/16 23:00 98.4 69 18 114/71 94 09/16/16 23:00 70 09/16/16 22:00 68 09/16/16 21:00 68 09/16/16 20:00 68 09/16/16 19:00 98.6 70 18 103/72 99 09/16/16 19:00 70 09/16/16 18:00 68 I/O 09/16/16 09/16/16 09/16/16 09/17/16 09/17/16 09/17/16 07:00 15:00 23:00 07:00 15:00 23:00 Intake Total 835 ml 360 ml 480 ml Output Total 700 ml 1150 ml 450 ml Balance 135 ml -790 ml 30 ml Intake Oral 835 ml 360 ml 480 ml Output Urine Total 700 ml 1150 ml 450 ml # Bowel Movements 1 Physical Exam GENERAL: Well developed, well nourished. No acute distress. HEENT: Jugular venous pressure is normal. CHEST: Diminished breath sounds diffusely. CARDIAC: Regular rate and rhythm without S3, S4, or murmur. ABDOMEN: Soft, nontender, no hepatosplenomegaly. Bowel sounds present. EXTREMITIES: No clubbing, cyanosis, or edema. Laboratory Laboratory Tests Test 09/17/16 06:33 White Blood Count 20.4 TH/MM3 Red Blood Count 4.33 MIL/MM3 Hemoglobin 12.6 GM/DL Hematocrit 37.3 % Mean Corpuscular Volume 86.3 FL Mean Corpuscular Hemoglobin 29.1 PG Mean Corpuscular Hemoglobin 33.7 % Concent Red Cell Distribution Width 17.5 % Platelet Count 113 TH/MM3 Mean Platelet Volume 9.2 FL Neutrophils (%) (Auto) 94.6 % Lymphocytes (%) (Auto) 2.2 % Monocytes (%) (Auto) 3.0 % Eosinophils (%) (Auto) 0.0 % Basophils (%) (Auto) 0.2 % Neutrophils # (Auto) 19.2 TH/MM3 Lymphocytes # (Auto) 0.5 TH/MM3 Monocytes # (Auto) 0.6 TH/MM3 Eosinophils # (Auto) 0.0 TH/MM3 Basophils # (Auto) 0.0 TH/MM3 CBC Comment AUTO DIFF Differential Total Cells 100 Counted Neutrophils % (Manual) 88 % Band Neutrophils % 2 % Lymphocytes % 4 % Monocytes % 4 % Neutrophils # (Manual) 18.8 TH/MM3 Metamyelocytes 2 % Differential Comment FINAL DIFF MANUAL Platelet Estimate LOW Platelet Morphology Comment NORMAL Red Cell Morphology Comment NORMAL Sodium Level 139 MEQ/L Potassium Level 3.4 MEQ/L Chloride Level 103 MEQ/L Carbon Dioxide Level 29.0 MEQ/L Anion Gap 7 MEQ/L Blood Urea Nitrogen 40 MG/DL Creatinine 0.92 MG/DL Estimat Glomerular Filtration 79 ML/MIN Rate Random Glucose 163 MG/DL Hemoglobin A1c 6.5 % Calcium Level 7.7 MG/DL Phosphorus Level 2.6 MG/DL Magnesium Level 2.6 MG/DL Total Bilirubin 0.7 MG/DL Aspartate Amino Transf 11 U/L (AST/SGOT) Alanine Aminotransferase 57 U/L (ALT/SGPT) Alkaline Phosphatase 72 U/L Total Protein 5.5 GM/DL Albumin 2.4 GM/DL Thyroid Stimulating Hormone 0.379 uIU/ML 3rd Gen Assessment and Plan Problem List: (1) Sustained ventricular tachycardia Assessment and Plan: Stable overnight. No further VT. Tolerating sotalol so far except possibly some fatigue. Continue to monitor through the weekend. (2) CAD (coronary artery disease) Assessment and Plan: Stable CAD status. No recent angina. Cont medical therapy. (3) Paroxysmal atrial fibrillation Assessment and Plan: Remains in AV paced rhythm, no recurrent atrial fibrillation. To continue sotalol as for his VT. Hold Eliquis in case patient ends up needing VT ablation. (4) Dilated cardiomyopathy Assessment and Plan: Stable. Compensated at present. Continue beta matias, Entresto, furosemide. (5) History of implantable cardioverter-defibrillator (ICD) placement Assessment and Plan: Stable. Adjustments recently made in ICD settings due to diaphragmatic stimulation problems. Code Status full code Discussed Condition With patient and Problem Qualifiers (1) CAD (coronary artery disease): Qualified Code: I25.10 - Coronary artery disease involving [place] coronary artery of [place] heart without angina pectoris Zacarias Ch MD Sep 17, 2016 17:25
[2016-09-17] MEDS: ATORVASTATIN 20 MG TAB PO SCH (21:16)
[2016-09-17] MEDS: INSULIN DETEMIR 100 UNITS/ML VIAL SQ SCH (21:17)
[2016-09-18] VITALS (26 sets, daily range): BP systolic 83–106; BP diastolic 55–74; PULSE 69–74; RESP 16–18; TEMP 97.6–98.1; O2SAT 94–97
[2016-09-18] MEDS: FUROSEMIDE 40 MG TAB PO SCH (05:57)
[2016-09-18] MEDS: LEVOTHYROXINE SODIUM 150 MCG TAB PO SCH (05:57)
[2016-09-18] MEDS: PANTOPRAZOLE SOD 40 MG DELAYED RELEASE TAB PO SCH (08:33)
[2016-09-18] MEDS: acetaZOLAMIDE 250 MG TAB PO SCH (08:33)
[2016-09-18] MEDS: FINASTERIDE 5 MG TAB PO SCH (08:34)
[2016-09-18] MEDS: SOTALOL HCL 80 MG TAB PO SCH ×2 (08:34→22:42)
[2016-09-18] MEDS: SACUBITRIL/VALSARTAN 49 MG-51 MG TAB PO SCH ×2 (08:37→21:00)
[2016-09-18] MEDS: METOPROLOL SUCCINATE 50 MG EXTENDED RELEASE TAB PO SCH (08:37)
[2016-09-18] MEDS ORDERED: methylPREDNISolone SOD SUCC 40 MG/1 ML VIAL IV SCH (09:00)
--- NOTE | 2016-09-18 10:28 | RADRPT ---
EXAM DATE/TIME: 09/18/2016 09:36 [facility] COMPARISON: CHEST PA & LAT, September 16, 2016, 9:45. INDICATIONS : Short of Breath. MEDICAL HISTORY : Chronic obstructive pulmonary disease. SURGICAL HISTORY : Pacemaker. ENCOUNTER: Subsequent ACUITY: 3 days PAIN SCORE: 0/10 LOCATION: Bilateral chest FINDINGS: Single AP view of the chest. AICD remains in place. Mild focal consolidation versus atelectasis in th e right midlung minimal patchy opacity in the lower lung zones. Cardiac silhouette is enlarged but un changed. No evidence of pleural effusion or pneumothorax. CONCLUSION: Findings very similar to prior study of 09/16/2016. Mild consolidation versus atelectasis in the right midlung. Garrett Carlton MD on September 18, 2016 at 10:25 Board Certified Radiologist. This report was verified electronically.
[2016-09-18] MEDS ORDERED: SODIUM CHLOR 0.9% 250 ML INJ 250 ML IV ONE ×2 (10:30→22:30)
--- NOTE | 2016-09-18 10:37 | HHI.PR ---
Subjective Remarks Bp noted to be low sbp in the 90's patient denies cp/sob is at bedside otherwise good oxygen saturation as per patient was very tired yesterday after physical therapy. Objective Vitals Vital Signs Date Time Temp Pulse Resp B/P Pulse Ox O2 Delivery O2 Flow Rate FiO2 09/18/16 10:11 69 09/18/16 09:08 69 09/18/16 08:00 69 09/18/16 08:00 97.9 74 18 91/67 96 09/18/16 04:00 70 09/18/16 03:30 97.8 70 16 92/63 94 09/18/16 03:00 69 09/18/16 02:00 70 09/18/16 01:00 70 09/18/16 00:16 97.6 70 16 106/74 96 09/18/16 00:00 70 09/17/16 23:00 69 09/17/16 22:00 70 09/17/16 21:00 70 09/17/16 20:27 97.6 70 16 102/79 96 09/17/16 20:00 70 09/17/16 19:00 69 09/17/16 18:00 68 09/17/16 17:00 68 09/17/16 16:00 68 09/17/16 15:00 69 09/17/16 15:00 97.5 70 16 119/79 96 09/17/16 14:00 68 09/17/16 13:00 68 09/17/16 12:00 97.7 68 17 109/75 97 09/17/16 12:00 68 09/17/16 11:00 68 I/O 09/17/16 09/17/16 09/17/16 09/18/16 09/18/16 09/18/16 07:00 15:00 23:00 07:00 15:00 23:00 Intake Total 480 ml 480 ml 240 ml Output Total 450 ml 925 ml 450 ml Balance 30 ml -445 ml -210 ml Intake Oral 480 ml 480 ml 240 ml Output Urine Total 450 ml 925 ml 450 ml # Bowel Movements 1 Result Diagram: 09/17/16 0633 09/17/16 0633 Imaging Last Impressions Chest X-Ray 09/16/16 0000 Signed Impressions: Service Date/Time: August 09:45 - CONCLUSION: Patchy areas of infiltrate throughout the right lung and left lower lung and cardiomegaly. The appearance is nonspecific and could be due to either infectious or cardiogenic causes. Harry Be MD Objective Remarks GENERAL: This is a pleasant, extremely [place] elderly male patient, in no apparent distress, eating lunch. SKIN: Two small fissures to medial gluteal cleft that are moisture and friction related.Periwound noted with denuded blanchable erythema. Patient also noted with small area of resolving moisture related partial thickness skin loss to R medial buttock.No pressure injuries seen at this time. HEAD: Atraumatic. Normocephalic. EYES: No scleral icterus. No injection or drainage. ENT: Nose without bleeding, purulent drainage. NECK: Trachea midline. No JVD or lymphadenopathy. CARDIOVASCULAR: Regular rate and rhythm without murmurs, gallops, or rubs. RESPIRATORY: Breath sounds equal bilaterally. No wheezes or rhonchi. Bibasilar crepitations at the base of lungs. GASTROINTESTINAL: Abdomen soft, non-tender, nondistended. No guarding. MUSCULOSKELETAL: Extremities without clubbing, cyanosis, or edema. No calf tenderness. NEUROLOGICAL: Awake and alert. Motor and sensory grossly within normal limits. Normal speech. Procedures None Medications and IVs Current Medications Medications (Trade) Dose Ordered Sig/Taylor Route Start Time Stop Time Status Last Admin (Diamox) 500 mg DAILY PO 09/16/16 09:00 09/18/16 08:33 (Lipitor) 20 mg HS PO 09/16/16 21:00 09/17/16 21:16 (Proscar) 5 mg DAILY PO 09/16/16 09:00 09/18/16 08:34 (Lasix) 40 mg DAILY@06,18 PO 09/16/16 06:00 09/18/16 05:57 (Levemir Inj) 10 units HS SQ 09/16/16 21:00 09/17/16 21:17 (Synthroid) 150 mcg DAILY@0600 PO 09/16/16 06:00 09/18/16 05:57 (Zofran Liq) 4 mg Q8H PRN PO 09/15/16 23:00 (Protonix) 40 mg DAILY PO 09/16/16 09:00 09/18/16 08:33 Patient Own Medication PT OWN MED: [Florast... BID PO 09/17/16 09:00 Hold (Entresto 49-51 Mg) 1 tab BID PO 09/15/16 23:00 09/18/16 08:37 (Betapace) 120 mg Q12HR PO 09/15/16 23:00 09/18/16 08:34 (Pill Splitter) 1 ea UNSCH PRN OTHER 09/15/16 23:15 (Toprol Xl) 50 mg DAILY PO 09/16/16 09:00 09/17/16 09:28 (Percocet 5-325 Mg) 1 tab Q4H PRN PO 09/18/16 08:00 (Deltasone) 40 mg DAILY PO 09/19/16 09:00 Urinary Catheter: No Vascular Central Line Catheter: No A/P Problem List: (1) Non-sustained ventricular tachycardia ICD Code: I47.2 Status: Acute (2) History of pneumonia ICD Code: Z87.01 Status: Resolved (3) Wound of skin ICD Code: R23.8 Status: Acute (4) Hypothyroidism ICD Code: E03.9 Status: Acute (5) Atrial fibrillation ICD Code: I48.91 Status: Chronic (6) Congestive heart failure ICD Code: I50.9 Status: Chronic (7) Leukocytosis ICD Code: D72.829 Status: Acute (8) COPD (chronic obstructive pulmonary disease) ICD Code: J44.9 Status: Chronic (9) Generalized weakness ICD Code: R53.1 Status: Acute (10) Hypotension ICD Code: I95.9 Status: Acute Plan: BP in the 90's systolic - as per this has been and ongoing issue Beta matias held this am due to bp Fu cardiology recommendations I will give a small bolus of 250 ml of NS Continue to monitor vital signs. Assessment and Plan (1) Non-sustained ventricular tachycardia Plan: Non-Sustained ventricular tachycardia - Cardiology consulted - appreciate Dr Calderon recommendations - Stable. No VT x2 days - Continue Sotalol and Toprol XL - management as per cardiology recommendations. - As per cardiology - monitor through weekend - DC home when cleared by cardiology (2) History of pneumonia Plan: Patient has leukocytosis of 23 on admission - trending down Patchy area of infiltrate throughout the right lung, left lower lung cardiomegaly. Pulmonary following. Appreciate recommendations. Good oxygen saturation on room air. repeat CXR today - patient not coughing, no fevers (3) Wound of skin Plan: - appreciate wound care evaluation Two small fissures to medial gluteal cleft that are moisture and friction related.Periwound noted with denuded blanchable erythema. Patient also noted with small area of resolving moisture related partial thickness skin loss to R medial buttock.No pressure injuries seen. - Calazime barrier cream bid and leave wound open to air. - Patient has some pain in wound area - Percocet added to therapy to control pain which seems better. (4) Hypothyroidism Plan: On levothyroxine. TSH within normal range. (5) Atrial fibrillation Plan: rate controlled. Continue with sotalol, metoprolol XL. Ventricular fibrillation with multiple pacer spikes. Fu cardiology recommendations. Pacer was adjusted on 09/16 by optical fabrication technician. Eliquis placed on hold since ablation being considered. Continue to hold eliquis for now - Will resume as per cardiology recommendations. (6) Congestive heart failure Plan: As per cardiology report - Ef 15 to 19%. Seems to be stable. Will decrease lasix dose to 20 mg daily when patient is discharged - Hold for today due to low bp. (7) Leukocytosis Plan: WBC 23 K on admission Trending down to 20 K today Likely due to steroid use No antibiotic therapy indicated at this time Morning cbc pending (8) COPD (chronic obstructive pulmonary disease) Plan: Dr Stanley from pulmonary following. Dv Solumedrol - start patient on prednisone taper. Repeat chest x-ray - reviewed by me shows improved congestion. (9) Generalized weakness Plan: Have very long conversation with the patient's . The patient 5 very concerned that the patient is getting weaker. She also states that they would prefer to take him home. However since the patient is weak and requires help to get up, I explained to her that it is probably better for the patient to be discharged to a rehabilitation center. PT 7 days a week wants patient to be discharged home despite my recommendation to be discharged to rehab. Patient will need home health PT. GI prophylaxis - PPI DVT prophylaxis - SCD's, will add heparin SQ since patient is weak with decreased mobility and Eliquis still on hold. Discharge Planning DC when cleared by cardiology and BP improved. Patient will need home health. Problem Qualifiers (1) Hypothyroidism: Qualified Code: E03.9 - Hypothyroidism, unspecified type (2) Atrial fibrillation: Qualified Code: I48.2 - Chronic atrial fibrillation (3) Congestive heart failure: Qualified Code: I50.22 - Chronic systolic congestive heart failure (4) COPD (chronic obstructive pulmonary disease): Qualified Code: J42 - Chronic bronchitis, unspecified chronic bronchitis type Lul Herron MD Sep 18, 2016 10:37
[2016-09-18 10:38] LABS: HEMATOCRIT 43.1 % (39.0-51.0); MEAN CELL VOLUME 87.5 FL (80.0-100.0); MEAN CORPUSCULAR HEMOGLOBIN 28.5 PG (27.0-34.0); MEAN CORPUSCULAR HGB CONC 32.6 % (32.0-36.0); PLATELET COUNT 130 TH/MM3 (150-450); RED BLOOD COUNT 4.92 MIL/MM3 (4.50-5.90); WHITE BLOOD COUNT 30.9 TH/MM3 (4.0-11.0)
[2016-09-18 11:18] LABS: BICARBONATE 28.3 MEQ/L (21.0-32.0); POTASSIUM 3.4 MEQ/L (3.5-5.1)
--- NOTE | 2016-09-18 12:56 | PD.CARD.PN ---
Subjective Subjective Remarks Denies CP, dyspnea, fatigue, dizziness, palpitations. Slept very well. Objective Medications Item Value Date Time Heparin Sodium 5,000 units 09/18/16 1400 (Porcine) Q8HR/SQ (Heparin Inj) Atorvastatin 20 mg 09/16/16 2100 Calcium HS/PO 09/17/16 2116 (Lipitor) Metoprolol 50 mg 09/16/16 0900 Succinate DAILY/PO (Toprol Xl) Furosemide 40 mg 09/16/16 0600 (Lasix) DAILY@06,18/PO 09/18/16 0557 Sacubitril/ 1 tab 09/15/16 2300 Valsartan BID/PO 09/18/16 0837 (Entresto 49-51 Mg) Sotalol HCl 120 mg 09/15/16 2300 (Betapace) Q12HR/PO 09/18/16 0834 Vital Signs / I&O Vital Signs Date Time Temp Pulse Resp B/P Pulse Ox O2 Delivery O2 Flow Rate FiO2 09/18/16 12:06 69 09/18/16 11:33 69 09/18/16 11:33 97.7 70 18 102/70 97 09/18/16 10:11 69 09/18/16 09:08 69 09/18/16 08:00 69 09/18/16 08:00 97.9 74 18 91/67 96 09/18/16 04:00 70 09/18/16 03:30 97.8 70 16 92/63 94 09/18/16 03:00 69 09/18/16 02:00 70 09/18/16 01:00 70 09/18/16 00:16 97.6 70 16 106/74 96 09/18/16 00:00 70 09/17/16 23:00 69 09/17/16 22:00 70 09/17/16 21:00 70 09/17/16 20:27 97.6 70 16 102/79 96 09/17/16 20:00 70 09/17/16 19:00 69 09/17/16 18:00 68 09/17/16 17:00 68 09/17/16 16:00 68 09/17/16 15:00 69 09/17/16 15:00 97.5 70 16 119/79 96 09/17/16 14:00 68 09/17/16 13:00 68 I/O 09/17/16 09/17/16 09/17/16 09/18/16 09/18/16 09/18/16 07:00 15:00 23:00 07:00 15:00 23:00 Intake Total 480 ml 480 ml 240 ml Output Total 450 ml 925 ml 450 ml Balance 30 ml -445 ml -210 ml Intake Oral 480 ml 480 ml 240 ml Output Urine Total 450 ml 925 ml 450 ml # Bowel Movements 1 Physical Exam GENERAL: Well developed, well nourished. No acute distress. HEENT: Jugular venous pressure is normal. CHEST: Diminished breath sounds diffusely. CARDIAC: Regular rate and rhythm without S3, S4, or murmur. ABDOMEN: Soft, nontender, no hepatosplenomegaly. Bowel sounds present. EXTREMITIES: No clubbing, cyanosis, or edema. Laboratory Laboratory Tests Test 09/18/16 09:33 White Blood Count 30.9 TH/MM3 Red Blood Count 4.92 MIL/MM3 Hemoglobin 14.0 GM/DL Hematocrit 43.1 % Mean Corpuscular Volume 87.5 FL Mean Corpuscular Hemoglobin 28.5 PG Mean Corpuscular Hemoglobin 32.6 % Concent Red Cell Distribution Width 18.0 % Platelet Count 130 TH/MM3 Mean Platelet Volume 10.2 FL Sodium Level 140 MEQ/L Potassium Level 3.4 MEQ/L Chloride Level 105 MEQ/L Carbon Dioxide Level 28.3 MEQ/L Anion Gap 7 MEQ/L Blood Urea Nitrogen 42 MG/DL Creatinine 0.97 MG/DL Estimat Glomerular Filtration 74 ML/MIN Rate Random Glucose 95 MG/DL Calcium Level 8.0 MG/DL Assessment and Plan Problem List: (1) Sustained ventricular tachycardia Assessment and Plan: Stable overnight. No further VT. Tolerating sotalol. Continue to monitor through the weekend as per Dr. Calderon. (2) CAD (coronary artery disease) Assessment and Plan: Stable CAD status. No recent angina. Cont medical therapy. (3) Paroxysmal atrial fibrillation Assessment and Plan: Remains in AV paced rhythm, no recurrent atrial fibrillation. To continue sotalol as for his VT. Hold Eliquis in case patient ends up needing VT ablation. (4) Dilated cardiomyopathy Assessment and Plan: Stable. Compensated at present. Continue beta matias, Entresto, furosemide. (5) History of implantable cardioverter-defibrillator (ICD) placement Assessment and Plan: Stable. Adjustments recently made in ICD settings due to diaphragmatic stimulation problems which have resolved. Code Status full code Discussed Condition With patient and Problem Qualifiers (1) CAD (coronary artery disease): Qualified Code: I25.10 - Coronary artery disease involving lumbee coronary artery of lumbee heart without angina pectoris Zacarias Ch MD Sep 18, 2016 12:56
[2016-09-18] MEDS: HEPARIN SODIUM - SQ 10,000 UNITS/ML VIAL SQ SCH ×2 (12:57→22:41)
[2016-09-18] MEDS: oxyCODONE/ACETAMINOPHEN 5 MG/325 MG TAB PO PRN (17:53)
--- NOTE | 2016-09-18 19:32 | HHI.PR ---
Subjective Remarks ALERT NO SOB WBC INCREASED Objective Last Impressions Chest X-Ray 09/18/16 0000 Signed Impressions: Service Date/Time: Sunday, September 18, 2016 09:36 - CONCLUSION: Findings very similar to prior study of 09/16/2016. Mild consolidation versus atelectasis in the right midlung. Garrett Carlton MD Vital Signs Date Time Temp Pulse Resp B/P Pulse Ox O2 Delivery O2 Flow Rate FiO2 09/18/16 18:34 69 09/18/16 17:17 69 09/18/16 16:31 69 09/18/16 15:50 98.0 69 18 92/67 96 09/18/16 15:50 69 09/18/16 14:21 69 09/18/16 13:15 70 09/18/16 12:06 69 09/18/16 11:33 69 09/18/16 11:33 97.7 70 18 102/70 97 09/18/16 10:11 69 09/18/16 09:08 69 09/18/16 08:00 69 09/18/16 08:00 97.9 74 18 91/67 96 09/18/16 04:00 70 09/18/16 03:30 97.8 70 16 92/63 94 09/18/16 03:00 69 09/18/16 02:00 70 09/18/16 01:00 70 09/18/16 00:16 97.6 70 16 106/74 96 09/18/16 00:00 70 09/17/16 23:00 69 09/17/16 22:00 70 09/17/16 21:00 70 09/17/16 20:27 97.6 70 16 102/79 96 09/17/16 20:00 70 I/O 09/17/16 09/17/16 09/17/16 09/18/16 09/18/16 09/18/16 07:00 15:00 23:00 07:00 15:00 23:00 Intake Total 480 ml 480 ml 240 ml 730 ml Output Total 450 ml 925 ml 450 ml 900 ml Balance 30 ml -445 ml -210 ml -170 ml Intake Oral 480 ml 480 ml 240 ml 480 ml IV Total 250 ml Output Urine Total 450 ml 925 ml 450 ml 900 ml # Bowel Movements 1 1 Result Diagram: 09/18/1633 09/18/1633 Objective Remarks GENERAL: SKIN: Warm and dry. HEAD: Atraumatic. Normocephalic. EYES: Pupils equal and round. No scleral icterus. No injection or drainage. ENT: No nasal bleeding or discharge. Mucous membranes pink and moist. NECK: Trachea midline. No JVD. CARDIOVASCULAR: Regular rate and rhythm. RESPIRATORY: No accessory muscle use. Clear to auscultation. Breath sounds equal bilaterally. GASTROINTESTINAL: Abdomen soft, non-tender, nondistended. Hepatic and splenic margins not palpable. MUSCULOSKELETAL: Extremities without clubbing, cyanosis, or edema. No obvious deformities. NEUROLOGICAL: Awake and alert. No obvious cranial nerve deficits. Motor grossly within normal limits. Five out of 5 muscle strength in the arms and legs. Normal speech. PSYCHIATRIC: Appropriate mood and affect; insight and judgment normal. Assessment and Plan Assessment and Plan COPD PNA , IMPROVED LEUKOCYTOSIS PLAN O2 NEEDED BRONCHODILATORS ID CONSULT Josie Galindo MD Sep 18, 2016 19:32
[2016-09-18] MEDS ORDERED: POTASSIUM CHLORIDE 20 MEQ CONTROLLED RELEASE TAB PO ONE (20:00)
[2016-09-18] MEDS: INSULIN DETEMIR 100 UNITS/ML VIAL SQ SCH (22:41)
[2016-09-18] MEDS: ATORVASTATIN 20 MG TAB PO SCH (22:42)
[2016-09-19] VITALS (18 sets, daily range): BP systolic 80–107; BP diastolic 54–68; PULSE 68–72; RESP 18–21; TEMP 97.7–98.2; O2SAT 93–100
[2016-09-19] LABS: AUTOMATED NEUTROPHIL # 18.5 TH/MM3 (1.8-7.7); BASOPHIL # 0.1 TH/MM3 (0-0.2); BASOPHIL % 0.4 % (0.0-2.0); HEMATOCRIT 39.4 % (39.0-51.0); LYMPH % 1.9 % (9.0-44.0); LYMPHOCYTE # 0.4 TH/MM3 (1.0-4.8); MEAN CELL VOLUME 87.9 FL (80.0-100.0); MEAN CORPUSCULAR HEMOGLOBIN 28.5 PG (27.0-34.0); MEAN CORPUSCULAR HGB CONC 32.4 % (32.0-36.0); MONO % 3.8 % (0.0-8.0); NEUT % 93.9 % (16.0-70.0); PLATELET COUNT 102 TH/MM3 (150-450); RED BLOOD COUNT 4.48 MIL/MM3 (4.50-5.90); RED CELL DISTRIBUTION WIDTH 18.2 % (11.6-17.2); WHITE BLOOD COUNT 19.7 TH/MM3 (4.0-11.0)
[2016-09-19 00:06] LABS: HEMO FLAGS AUTO DIFF
[2016-09-19 00:12] LABS: BICARBONATE 24.7 MEQ/L (21.0-32.0); POTASSIUM 3.6 MEQ/L (3.5-5.1)
[2016-09-19 00:49] LABS: OVALOCYTES 1+ (NORMAL); SCAN/DIFF AUTO DIFF CONFIRMED
[2016-09-19] MEDS ORDERED: VANCOMYCIN INJ 1,000 MG in SODIUM CHLOR 0.9% 250 ML INJ 250 ML IV SCH (04:00)
[2016-09-19] MEDS ORDERED: LEVOFLOXACIN 750 MG PREMIX INJ 150 ML IV SCH (04:00)
[2016-09-19] MEDS ORDERED: Vancomycin Consult Pharmacy 1 EA OTHER SCH (04:00)
[2016-09-19] MEDS ORDERED: LEVOFLOXACIN 750 MG PREMIX INJ 150 ML IV ONE (04:40)
[2016-09-19] MEDS: LEVOTHYROXINE SODIUM 150 MCG TAB PO SCH (04:50)
[2016-09-19] MEDS: HEPARIN SODIUM - SQ 10,000 UNITS/ML VIAL SQ SCH ×3 (04:50→21:03)
[2016-09-19] MEDS ORDERED: VANCOMYCIN INJ 1,250 MG in SODIUM CHLOR 0.9% 250 ML INJ 250 ML IV ONE (05:00)
[2016-09-19] MEDS: acetaZOLAMIDE 250 MG TAB PO SCH (08:18)
[2016-09-19] MEDS: FINASTERIDE 5 MG TAB PO SCH (08:18)
[2016-09-19] MEDS: SOTALOL HCL 80 MG TAB PO SCH ×2 (08:18→21:04)
[2016-09-19] MEDS: PANTOPRAZOLE SOD 40 MG DELAYED RELEASE TAB PO SCH (08:18)
[2016-09-19] MEDS: predniSONE 20 MG TAB PO SCH (08:18)
[2016-09-19] MEDS: SACUBITRIL/VALSARTAN 49 MG-51 MG TAB PO SCH ×2 (08:19→21:00)
[2016-09-19] MEDS: METOPROLOL SUCCINATE 50 MG EXTENDED RELEASE TAB PO SCH (08:19)
[2016-09-19] MEDS: oxyCODONE/ACETAMINOPHEN 5 MG/325 MG TAB PO PRN (08:19)
[2016-09-19 08:54] LABS: BLOOD, URINE NEG (NEG); COMMENT (UR) CULT NOT INDICATED; CULTURE IF INDICATED CULT NOT INDICATED; GLUCOSE,URINE TRACE mg/dL (NEG); KETONE, URINE NEG (NEG); NITRITE,URINE NEG (NEG); SQUAMOUS EPITHELIAL CELL URINE <1 /hpf (0-5); URINE COLOR YELLOW (YELLW/STRAW)
[2016-09-19] MEDS ORDERED: predniSONE 20 MG TAB PO SCH (09:00)
[2016-09-19] MEDS: SODIUM CHLOR 0.9% 1000 ML INJ 1,000 ML IV SCH ×2 (10:30→15:13)
[2016-09-19] MEDS ORDERED: SODIUM CHLOR 0.9% 1000 ML INJ 1,000 ML IV ONE (11:00)
--- NOTE | 2016-09-19 11:38 | HHI.PR ---
Subjective Remarks Patient lethargic Noted to be hypotensive patient denies cp/sob no fevers or chills Skin saturation on room air is 92%. Patient hypotensive overnight status post IV fluid bolus of 250 cc Objective Vitals Vital Signs Date Time Temp Pulse Resp B/P Pulse Ox O2 Delivery O2 Flow Rate FiO2 09/19/16 10:05 69 09/19/16 09:45 16 09/19/16 09:00 69 09/19/16 08:15 69 09/19/16 08:15 97.7 70 18 94/68 100 09/19/16 05:00 69 09/19/16 04:00 69 09/19/16 03:01 98.1 69 18 96/60 96 09/19/16 03:00 69 09/19/16 02:00 69 09/19/16 01:00 69 09/19/16 00:00 69 09/18/16 23:05 98.1 69 18 90/57 96 09/18/16 23:00 69 09/18/16 22:11 83/55 09/18/16 22:00 69 09/18/16 21:00 69 09/18/16 20:00 69 09/18/16 19:05 98.1 69 18 86/64 96 09/18/16 19:00 69 09/18/16 18:34 69 09/18/16 17:17 69 09/18/16 16:31 69 09/18/16 15:50 98.0 69 18 92/67 96 09/18/16 15:50 69 09/18/16 14:21 69 09/18/16 13:15 70 09/18/16 12:06 69 09/18/16 11:33 69 09/18/16 11:33 97.7 70 18 102/70 97 I/O 09/18/16 09/18/16 09/18/16 09/19/16 09/19/16 09/19/16 07:00 15:00 23:00 07:00 15:00 23:00 Intake Total 240 ml 730 ml Output Total 450 ml 900 ml Balance -210 ml -170 ml Intake Oral 240 ml 480 ml IV Total 250 ml Output Urine Total 450 ml 900 ml # Bowel Movements 1 Result Diagram: 09/18/16232209/18/162322 Imaging Last Impressions Chest X-Ray 09/18/16 0000 Signed Impressions: Service Date/Time: Sunday, September 18, 2016 09:36 - CONCLUSION: Findings very similar to prior study of 09/16/2016. Mild consolidation versus atelectasis in the right midlung. Garrett Carlton MD Objective Remarks GENERAL: This is a pleasant, extremely [place] elderly male patient, in no apparent distress, lethargic. SKIN: Two small fissures to medial gluteal cleft that are moisture and friction related.Periwound noted with denuded blanchable erythema. Patient also noted with small area of resolving moisture related partial thickness skin loss to R medial buttock.No pressure injuries seen at this time. HEAD: Atraumatic. Normocephalic. EYES: No scleral icterus. No injection or drainage. ENT: Nose without bleeding, purulent drainage. NECK: Trachea midline. No JVD or lymphadenopathy. CARDIOVASCULAR: Regular rate and rhythm without murmurs, gallops, or rubs. RESPIRATORY: Crackles in the left lower lung field. The rest of the lungs is clear to auscultation. GASTROINTESTINAL: Abdomen soft, non-tender, nondistended. No guarding. MUSCULOSKELETAL: Extremities without clubbing, cyanosis, or edema. No calf tenderness. NEUROLOGICAL: 30 but arousable. The patient is awake and alert once awoken. Motor and sensory grossly within normal limits. Normal speech. Procedures None Medications and IVs Current Medications Medications (Trade) Dose Ordered Sig/Taylor Route Start Time Stop Time Status Last Admin (Diamox) 500 mg DAILY PO 09/16/16 09:00 09/19/16 08:18 (Lipitor) 20 mg HS PO 09/16/16 21:00 09/18/16 22:42 (Proscar) 5 mg DAILY PO 09/16/16 09:00 09/19/16 08:18 (Lasix) 40 mg DAILY@06,18 PO 09/16/16 06:00 Hold 09/18/16 05:57 (Levemir Inj) 10 units HS SQ 09/16/16 21:00 09/18/16 22:41 (Synthroid) 150 mcg DAILY@0600 PO 09/16/16 06:00 09/19/16 04:50 (Zofran Liq) 4 mg Q8H PRN PO 09/15/16 23:00 (Protonix) 40 mg DAILY PO 09/16/16 09:00 09/19/16 08:18 Patient Own Medication PT OWN MED: [Florast... BID PO 09/17/16 09:00 Hold (Entresto 49-51 Mg) 1 tab BID PO 09/15/16 23:00 09/18/16 08:37 (Betapace) 120 mg Q12HR PO 09/15/16 23:00 09/19/16 08:18 (Pill Splitter) 1 ea UNSCH PRN OTHER 09/15/16 23:15 (Toprol Xl) 50 mg DAILY PO 09/16/16 09:00 09/17/16 09:28 (Percocet 5-325 Mg) 1 tab Q4H PRN PO 09/18/16 08:00 09/19/16 08:19 (Heparin Inj) 5,000 units Q8HR SQ 09/18/16 14:00 09/19/16 04:50 Prednisone 20 mg 20 mg DAILY PO 09/19/16 09:00 09/19/16 08:18 Pharmacy Profile Note 0 ml @ 0 mls/hr UNSCH OTHER 09/19/16 04:00 Levofloxacin/ Dextrose 150 ml @ 100 mls/hr Q48H IV 09/21/16 04:00 (Vancomycin Inj/ NS 250 ml Inj) 250 ml @ 250 mls/hr Q24H IV 09/20/16 05:00 Miscellaneous Information SPECIFIC LAB TO BE CHEMA... ONCE ONCE XX 09/22/16 04:45 09/22/16 04:46 (NS 1000 ml Inj) 1,000 ml @ 84 mls/hr [id number] IV 09/19/16 10:30 Urinary Catheter: No Vascular Central Line Catheter: No A/P Problem List: (1) Sepsis ICD Code: A41.9 Status: Acute Plan: Sepsis syndrome, the patient has persistent leukocytosis and hypotension with elevated lactic acid. Repeat chest x-ray obtained on 09/19/16 shows mild consolidation versus atelectasis in the right midlung. I started patient on IV vancomycin and IV Levaquin ID has been consulted WBC elevated at 19.7. Continue to monitor lactic acid which was elevated at 2.8 then down to 2.0. Follow-up blood cultures (2) Hypotension ICD Code: I95.9 Status: Acute Plan: Potential likely secondary to sepsis syndrome secondary to HCAP. I will give bolus of 1 L of normal saline, the patient is status post a bolus of 500 ml yesterday. Transferred to intensive care unit since patient is still hypotensive and lethargic. (3) Encephalopathy acute ICD Code: G93.40 Status: Acute Plan: Patient is more lethargic today. Patient likely with metabolic encephalopathy secondary to sepsis. Continue to monitor neurological status. (4) Non-sustained ventricular tachycardia ICD Code: I47.2 Status: Acute (5) History of pneumonia ICD Code: Z87.01 Status: Resolved (6) Wound of skin ICD Code: R23.8 Status: Acute (7) Hypothyroidism ICD Code: E03.9 Status: Acute (8) Atrial fibrillation ICD Code: I48.91 Status: Chronic (9) Congestive heart failure ICD Code: I50.9 Status: Chronic (10) Leukocytosis ICD Code: D72.829 Status: Acute (11) COPD (chronic obstructive pulmonary disease) ICD Code: J44.9 Status: Chronic (12) Generalized weakness ICD Code: R53.1 Status: Acute Assessment and Plan (1) Non-sustained ventricular tachycardia Plan: Non-Sustained ventricular tachycardia - Cardiology consulted - appreciate Dr Calderon recommendations - Stable. No VT x3 days - Continue Sotalol and Toprol XL with - management as per cardiology recommendations. (2) History of pneumonia Plan: Patient has leukocytosis of 23 on admission - trending down Patchy area of infiltrate throughout the right lung, left lower lung cardiomegaly. Pulmonary following. Appreciate recommendations. Good oxygen saturation on room air. 09/19 Patient likely with HCAP - CXR shows mild consolidation 02 sat now 92% on marine, air. (3) Wound of skin Plan: - appreciate wound care evaluation Two small fissures to medial gluteal cleft that are moisture and friction related.Periwound noted with denuded blanchable erythema. Patient also noted with small area of resolving moisture related partial thickness skin loss to R medial buttock.No pressure injuries seen. - Calazime barrier cream bid and leave wound open to air. - Patient has some pain in wound area - Percocet added to therapy to control pain which seems better. - no signs of infection in wound (4) Hypothyroidism Plan: On levothyroxine. TSH within normal range. (5) Atrial fibrillation Plan: rate controlled. Continue with sotalol, metoprolol XL. Ventricular fibrillation with multiple pacer spikes. Fu cardiology recommendations. Pacer was adjusted on 09/16 by senior laboratory technician. Eliquis placed on hold since ablation being considered. Continue to hold eliquis for now - Will resume as per cardiology recommendations. (6) Congestive heart failure Plan: As per cardiology report - Ef 15 to 19%. Seems to be stable. Hold lasix - patient with sepsis syndrome. Acute on chronic systolic heart failure, now resolved. (7) Leukocytosis Plan: WBC 23 K on admission Trending down to 20 K today Likely due to steroid use No antibiotic therapy indicated at this time Morning cbc pending (8) COPD (chronic obstructive pulmonary disease) Plan: Dr Stanley from pulmonary following. Dv Solumedrol - start patient on prednisone taper. Repeat chest x-ray - reviewed by me shows improved congestion and mild consolidation. (9) Generalized weakness Plan: Have very long conversation with the patient's . The patient 5 very concerned that the patient is getting weaker. She also states that they would prefer to take him home. However since the patient is weak and requires help to get up, I explained to her that it is probably better for the patient to be discharged to a rehabilitation center. PT 7 days a week Patient's is now considered rehabilitation therapy at rehabilitation center. GI prophylaxis - PPI DVT prophylaxis - SCD's, will add heparin SQ since patient is weak with decreased mobility and Eliquis still on hold. Discharge Planning Posture patient to intensive care unit. Problem Qualifiers (1) Hypothyroidism: Qualified Code: E03.9 - Hypothyroidism, unspecified type (2) Atrial fibrillation: Qualified Code: I48.2 - Chronic atrial fibrillation (3) Congestive heart failure: Qualified Code: I50.22 - Chronic systolic congestive heart failure (4) COPD (chronic obstructive pulmonary disease): Qualified Code: J42 - Chronic bronchitis, unspecified chronic bronchitis type Lul Herron MD Sep 19, 2016 11:38
--- NOTE | 2016-09-19 11:47 | PD.CONS ---
History of Present Illness Service Infectious disease Consult Requested By Dr Jose C Galindo Reason for Consult Evaluate patient with leukocytosis Primary Care Physician Rupal Okeefe MD Diagnoses: History of Present Illness Patient seen and examined. Records reviewed. Patient is an 81 year-old male, transferred from [facility], for further evaluation of his recurrent ventricular arrhythmia. He was hospitalized at [facility] around August 03 for evaluation of cough, as well as fever and chills. He was diagnosed and treated as pneumonia, and his sputum culture had normal alessandro. His pulmonary symptoms have improved, but he developed an trickle or erythema. He was transferred to [place] for evaluation by manager clinical applications. Patient has had problem with ventricular tachycardia, and actually has an AICD in place. He has been having respiratory problems since June, and was given a diagnosis of pulmonary fibrosis. He was on amiodarone at that time, and it was felt that it might have caused pulmonary toxicity and it was stopped. It was initially offered that he get ablation but the patient refused. He is currently being managed medically to try and control his ventricular arrhythmia. Since admission here he has not been febrile. His pulmonary symptoms have all improved. He is not really coughing at all, and his breathing is good with no shortness of breath, and no chest pain. However his WBC was elevated, an infectious disease consultation has been requested to evaluate the patient. Patient also is getting IV Solu-Medrol. He was restarted on antibiotics this morning. He denies any diarrhea. His Melchor catheter has been removed and he is voiding without any problem. His urinalysis is normal. His WBC is down to 19,000 today, and it was 30,000 yesterday. 2 blood cultures were done and they are pending. Chest x-ray showing some infiltrates or atelectasis in the right lung. He has not had any central line placed during his stay at [facility]. Infectious disease consultation has been requested to evaluate his leukocytosis Review of Systems Constitutional: DENIES: Fever, Chills, Night Sweats Eyes: DENIES: Eye pain Ears, nose, mouth, throat: DENIES: Nasal discharge, Throat pain, Hoarseness, Ear Pain, Running Nose, Sinus Pain Respiratory: COMPLAINS OF: Cough, DENIES: Shortness of breath Cardiovascular: DENIES: Chest pain Gastrointestinal: DENIES: Abdominal pain, Diarrhea, Nausea, Vomiting Genitourinary: DENIES: Hematuria, Dysuria Musculoskeletal: DENIES: Joint pain, Joint Swelling Integumentary: DENIES: Rash Neurologic: DENIES: Headache Psychiatric: DENIES: Hallucinations Past Family Social History Allergies: Coded Allergies: Penicillin (Verified Allergy, Unknown, UNSURE, 09/15/16) Past Medical History Ventricular tachycardia - sustained Cardiomyopathy - EF 15 - 19% Atrial fibrillation - takes Eliquis Sick sinus syndrome MT 1998 MT 2007 - PM Hypothyroidism Renal insufficiency BPH Past Surgical History Coronary stents x 5 PM 2006 AICD/PM 2009 . Active Ordered Medications Diamox Lipitor Proscar Heparin Insulin Levaquin Synthroid Toprol Zofran Percocet Protonix Prednisone Entresto Betapace Vancomycin Social History No smoking Alcohol abuse No illicit drug use Physical Exam Vital Signs Vital Signs Date Time Temp Pulse Resp B/P Pulse Ox O2 Delivery O2 Flow Rate FiO2 09/19/16 10:05 69 09/19/16 09:45 16 09/19/16 09:00 69 09/19/16 08:15 69 09/19/16 08:15 97.7 70 18 94/68 100 09/19/16 05:00 69 09/19/16 04:00 69 09/19/16 03:01 98.1 69 18 96/60 96 09/19/16 03:00 69 09/19/16 02:00 69 09/19/16 01:00 69 09/19/16 00:00 69 09/18/16 23:05 98.1 69 18 90/57 96 09/18/16 23:00 69 09/18/16 22:11 83/55 09/18/16 22:00 69 09/18/16 21:00 69 09/18/16 20:00 69 09/18/16 19:05 98.1 69 18 86/64 96 09/18/16 19:00 69 09/18/16 18:34 69 09/18/16 17:17 69 09/18/16 16:31 69 09/18/16 15:50 98.0 69 18 92/67 96 09/18/16 15:50 69 09/18/16 14:21 69 09/18/16 13:15 70 09/18/16 12:06 69 09/18/16 11:33 69 09/18/16 11:33 97.7 70 18 102/70 97 Physical Exam GENERAL: This is a well-nourished, well-developed male, awake and alert, not in respiratory distress. SKIN: Warm and dry, no generalized rash or ecchymosis. His IV sites look okay with no evidence of phlebitis. HEAD: Atraumatic. Normocephalic. No temporal or scalp tenderness. EYES: [place] conjunctivae, no petechia or hemorrhage. Pupils equal round and reactive. Extraocular motions intact. No scleral icterus. No injection or drainage. ENT: Nose without bleeding, or purulent drainage. Moist oral mucosa, no oral thrush. Throat without erythema, or exudate. Uvula midline. Airway patent. NECK: Trachea midline. No JVD or lymphadenopathy. Supple, nontender, no meningeal signs. CARDIOVASCULAR: Regular rate and rhythm without murmurs, gallops, or rubs. AICD is in the left upper chest with no evidence of infection. RESPIRATORY: Clear to auscultation. Breath sounds equal bilaterally. No wheezes , rales, or rhonchi. GASTROINTESTINAL: Abdomen soft, non-tender, nondistended. Bowel sounds are present and normoactive. No hepato-splenomegaly, or palpable masses. No guarding. MUSCULOSKELETAL: Extremities without clubbing, cyanosis, or edema. No joint tenderness, or effusion. No calf tenderness. Negative Homans sign bilaterally. NEUROLOGICAL: Awake and alert. Cranial nerves II through XII intact. Motor and sensory grossly within normal limits. Normal speech. PSYCH: Normal affect, calm and cooperative LINE: PIV with no evidence of infection Laboratory Laboratory Tests Test 09/18/16 09/19/16 09/19/16 23:23 04:47 08:21 White Blood Count 19.7 Red Blood Count 4.48 Hemoglobin 12.8 Hematocrit 39.4 Mean Corpuscular Volume 87.9 Mean Corpuscular Hemoglobin 28.5 Mean Corpuscular Hemoglobin 32.4 Concent Red Cell Distribution Width 18.2 Platelet Count 102 Mean Platelet Volume 10.5 Neutrophils (%) (Auto) 93.9 Lymphocytes (%) (Auto) 1.9 Monocytes (%) (Auto) 3.8 Eosinophils (%) (Auto) 0.0 Basophils (%) (Auto) 0.4 Neutrophils # (Auto) 18.5 Lymphocytes # (Auto) 0.4 Monocytes # (Auto) 0.7 Eosinophils # (Auto) 0.0 Basophils # (Auto) 0.1 CBC Comment AUTO DIFF Differential Comment AUTO DIFF CONFIRMED Ovalocytes 1+ Sodium Level 140 Potassium Level 3.6 Chloride Level 106 Carbon Dioxide Level 24.7 Anion Gap 9 Blood Urea Nitrogen 51 Creatinine 1.16 Estimat Glomerular Filtration 60 Rate Random Glucose 253 Lactic Acid Level 2.8 2.0 Calcium Level 7.7 B-Type Natriuretic Peptide 269 Urine Color YELLOW Urine Turbidity HAZY Urine pH 7.0 Urine Specific Watson 1.021 Urine Protein TRACE Urine Glucose (UA) TRACE Urine Ketones NEG Urine Occult Blood NEG Urine Nitrite NEG Urine Bilirubin NEG Urine Urobilinogen LESS THAN 2.0 Urine Leukocyte Esterase TRACE Urine RBC LESS THAN 1 Urine WBC 2 Urine Squamous Epithelial <1 Cells Urine Amorphous Sediment OCC Microscopic Urinalysis Comment CULT NOT INDICATED Date/Time Procedure Status Source Growth 09/19/16 04:47 Aerobic Blood Culture Received Blood Peripheral Pending 09/19/16 04:47 Anaerobic Blood Culture Received Blood Peripheral Pending Result Diagram: 09/18/16 2323 09/18/16 2323 Imaging RADIOLOGY STUDIES/FILMS REVIEWED Chest X-Ray 09/18/16 0000 Signed Impressions: Service Date/Time: Sunday, September 18, 2016 09:36 - CONCLUSION: Findings very similar to prior study of 09/16/2016. Mild consolidation versus atelectasis in the right midlung. Garrett Carlton MD Assessment and Plan Assessment and Plan IMPRESSION Leukocytosis, likely reactive, or due to meds - clinically his PNA is much improved - no evidence of new infection Pneumonia, CAP, better Pulmonary fibrosis, COPD Cardiomyopathy, has AICD/Pacer, has recurrent problem with VT RECOMMENDATION Patient has had adequate Rx for his PNA Stop Vancomycin If stable, and nothing else on C/S, will also stop Levaquin Change to po Levaquin Monitor progress I will follow along with you Thank you for this consultation Discussed Condition With Explained plan to the patient and Bia Fuentes MD Sep 19, 2016 11:47
--- NOTE | 2016-09-19 12:05 | PD.CARD.PN ---
Subjective Subjective Remarks Fatigued. No CP, dyspnea, palpitations, nausea, PND, dizziness. Objective Medications Item Value Date Time Heparin Sodium 5,000 units 09/18/16 1400 (Porcine) Q8HR/SQ 09/19/16 0450 (Heparin Inj) Atorvastatin 20 mg 09/16/16 2100 Calcium HS/PO 09/18/16 2242 (Lipitor) Metoprolol 50 mg 09/16/16 0900 Succinate DAILY/PO (Toprol Xl) Sacubitril/ 1 tab 09/15/16 2300 Valsartan BID/PO (Entresto 49-51 Mg) Sotalol HCl 120 mg 09/15/16 2300 (Betapace) Q12HR/PO 09/19/16 0818 Vital Signs / I&O Vital Signs Date Time Temp Pulse Resp B/P Pulse Ox O2 Delivery O2 Flow Rate FiO2 09/19/16 12:00 70 09/19/16 11:51 69 09/19/16 11:51 97.7 72 18 80/54 95 09/19/16 10:05 69 09/19/16 09:45 16 09/19/16 09:00 69 09/19/16 08:15 69 09/19/16 08:15 97.7 70 18 94/68 100 09/19/16 05:00 69 09/19/16 04:00 69 09/19/16 03:01 98.1 69 18 96/60 96 09/19/16 03:00 69 09/19/16 02:00 69 09/19/16 01:00 69 09/19/16 00:00 69 09/18/16 23:05 98.1 69 18 90/57 96 09/18/16 23:00 69 09/18/16 22:11 83/55 09/18/16 22:00 69 09/18/16 21:00 69 09/18/16 20:00 69 09/18/16 19:05 98.1 69 18 86/64 96 09/18/16 19:00 69 09/18/16 18:34 69 09/18/16 17:17 69 09/18/16 16:31 69 09/18/16 15:50 98.0 69 18 92/67 96 09/18/16 15:50 69 09/18/16 14:21 69 09/18/16 13:15 70 09/18/16 12:06 69 I/O 09/18/16 09/18/16 09/18/16 09/19/16 09/19/16 09/19/16 07:00 15:00 23:00 07:00 15:00 23:00 Intake Total 240 ml 730 ml Output Total 450 ml 900 ml Balance -210 ml -170 ml Intake Oral 240 ml 480 ml IV Total 250 ml Output Urine Total 450 ml 900 ml # Bowel Movements 1 Physical Exam GENERAL: Well developed, well nourished. No acute distress. HEENT: Jugular venous pressure is normal. CHEST: Diminished breath sounds diffusely. CARDIAC: Regular rate and rhythm without S3, S4, or murmur. ABDOMEN: Soft, nontender, no hepatosplenomegaly. Bowel sounds present. EXTREMITIES: No clubbing, cyanosis, or edema. Laboratory Laboratory Tests Test 09/18/16 09/19/16 09/19/16 23:23 04:47 08:21 White Blood Count 19.7 TH/MM3 Red Blood Count 4.48 MIL/MM3 Hemoglobin 12.8 GM/DL Hematocrit 39.4 % Mean Corpuscular Volume 87.9 FL Mean Corpuscular Hemoglobin 28.5 PG Mean Corpuscular Hemoglobin 32.4 % Concent Red Cell Distribution Width 18.2 % Platelet Count 102 TH/MM3 Mean Platelet Volume 10.5 FL Neutrophils (%) (Auto) 93.9 % Lymphocytes (%) (Auto) 1.9 % Monocytes (%) (Auto) 3.8 % Eosinophils (%) (Auto) 0.0 % Basophils (%) (Auto) 0.4 % Neutrophils # (Auto) 18.5 TH/MM3 Lymphocytes # (Auto) 0.4 TH/MM3 Monocytes # (Auto) 0.7 TH/MM3 Eosinophils # (Auto) 0.0 TH/MM3 Basophils # (Auto) 0.1 TH/MM3 CBC Comment AUTO DIFF Differential Comment AUTO DIFF CONFIRMED Ovalocytes 1+ Sodium Level 140 MEQ/L Potassium Level 3.6 MEQ/L Chloride Level 106 MEQ/L Carbon Dioxide Level 24.7 MEQ/L Anion Gap 9 MEQ/L Blood Urea Nitrogen 51 MG/DL Creatinine 1.16 MG/DL Estimat Glomerular Filtration 60 ML/MIN Rate Random Glucose 253 MG/DL Lactic Acid Level 2.8 mmol/L 2.0 mmol/L Calcium Level 7.7 MG/DL B-Type Natriuretic Peptide 269 PG/ML Urine Color YELLOW Urine Turbidity HAZY Urine pH 7.0 Urine Specific [place] 1.021 Urine Protein TRACE mg/dL Urine Glucose (UA) TRACE mg/dL Urine Ketones NEG mg/dL Urine Occult Blood NEG Urine Nitrite NEG Urine Bilirubin NEG Urine Urobilinogen LESS THAN 2.0 MG/DL Urine Leukocyte Esterase TRACE Urine RBC LESS THAN 1 /hpf Urine WBC 2 /hpf Urine Squamous Epithelial <1 /hpf Cells Urine Amorphous Sediment OCC Microscopic Urinalysis Comment CULT NOT INDICATED Assessment and Plan Problem List: (1) Sustained ventricular tachycardia Assessment and Plan: Stable overnight. No further VT. Tolerating sotalol. Continue to monitor through the weekend. Dr. Calderon back tomorrow. (2) CAD (coronary artery disease) Assessment and Plan: Stable CAD status. No recent angina. Cont medical therapy. (3) Paroxysmal atrial fibrillation Assessment and Plan: Remains in AV paced rhythm, no recurrent atrial fibrillation. To continue sotalol as for his VT. Hold Eliquis in case patient ends up needing VT ablation. (4) Dilated cardiomyopathy Assessment and Plan: Stable. Compensated at present. Continue beta matias, Entresto, furosemide as BP's tolerate. May have to stop Entresto if low BP's persist. (5) History of implantable cardioverter-defibrillator (ICD) placement Assessment and Plan: Stable. Adjustments recently made in ICD settings due to diaphragmatic stimulation problems which have resolved. Code Status full code Discussed Condition With patient and Problem Qualifiers (1) CAD (coronary artery disease): Qualified Code: I25.10 - Coronary artery disease involving [place] coronary artery of [place] heart without angina pectoris Zacarias Ch MD Sep 19, 2016 12:05
[2016-09-19 12:31] LABS: AUTOMATED NEUTROPHIL # 20.5 TH/MM3 (1.8-7.7); BASOPHIL % 0.1 % (0.0-2.0); EOSINOPHIL % 0.2 % (0.0-4.0); HEMATOCRIT 40.7 % (39.0-51.0); LYMPHOCYTE # 0.4 TH/MM3 (1.0-4.8); MEAN CELL VOLUME 88.6 FL (80.0-100.0); MEAN CORPUSCULAR HEMOGLOBIN 29.2 PG (27.0-34.0); MONO % 4.3 % (0.0-8.0); NEUT % 93.4 % (16.0-70.0); PLATELET COUNT 93 TH/MM3 (150-450); RED BLOOD COUNT 4.59 MIL/MM3 (4.50-5.90); RED CELL DISTRIBUTION WIDTH 18.2 % (11.6-17.2)
[2016-09-19 12:34] LABS: HEMO FLAGS AUTO DIFF
[2016-09-19 12:44] LABS: ALT (GPT) 77 U/L (12-78); ANION GAP 10 MEQ/L (5-15); AST (GOT) 19 U/L (15-37); BICARBONATE 24.4 MEQ/L (21.0-32.0); BLOOD UREA NITROGEN 38 MG/DL (7-18); CHLORIDE 108 MEQ/L (98-107); GLOMERULAR FILTRATION RATE 78 ML/MIN (>89); MAGNESIUM 2.4 MG/DL (1.5-2.5); POTASSIUM 3.9 MEQ/L (3.5-5.1); SODIUM (NA) 142 MEQ/L (136-145)
[2016-09-19 12:48] LABS: ALKALINE PHOSPHATASE 93 U/L (45-117); TOTAL BILIRUBIN ADULT 0.6 MG/DL (0.2-1.0)
[2016-09-19 13:10] LABS: BANDS 7 % (0-6); NEUTROPHIL # MANUAL DIFF 20.2 TH/MM3 (1.8-7.7); OVALOCYTES 1+ (NORMAL); PLATELET ESTIMATE SMEAR LOW (NORMAL); PLATELET MORPHOLOGY NORMAL (NORMAL); POLYS (SEG NEUTROPHILS) 85 % (16-70); WBC DIFF SAMPLE 100
[2016-09-19 13:11] LABS: SCAN/DIFF FINAL DIFF MANUAL
--- NOTE | 2016-09-19 17:41 | HHI.PR ---
Subjective Remarks ALERT NO SOB WBC INCREASED NOW IN ICU , FOR LOW BP , BETTER WITH HYDRATION Objective Vital Signs Date Time Temp Pulse Resp B/P Pulse Ox O2 Delivery O2 Flow Rate FiO2 09/19/16 14:00 69 09/19/16 13:00 98.0 69 20 104/66 95 09/19/16 12:00 70 09/19/16 11:51 69 09/19/16 11:51 97.7 72 18 80/54 95 09/19/16 10:05 69 09/19/16 09:45 16 09/19/16 09:00 69 09/19/16 08:15 69 09/19/16 08:15 97.7 70 18 94/68 100 09/19/16 05:00 69 09/19/16 04:00 69 09/19/16 03:01 98.1 69 18 96/60 96 09/19/16 03:00 69 09/19/16 02:00 69 09/19/16 01:00 69 09/19/16 00:00 69 09/18/16 23:05 98.1 69 18 90/57 96 09/18/16 23:00 69 09/18/16 22:11 83/55 09/18/16 22:00 69 09/18/16 21:00 69 09/18/16 20:00 69 09/18/16 19:05 98.1 69 18 86/64 96 09/18/16 19:00 69 09/18/16 18:34 69 I/O 09/18/16 09/18/16 09/18/16 09/19/16 09/19/16 09/19/16 07:00 15:00 23:00 07:00 15:00 23:00 Intake Total 240 ml 730 ml 1060 ml Output Total 450 ml 900 ml 175 ml Balance -210 ml -170 ml 885 ml Intake Oral 240 ml 480 ml 60 ml IV Total 250 ml 1000 ml Output Urine Total 450 ml 900 ml 175 ml # Bowel Movements 1 Result Diagram: 09/19/16 1148 09/19/16 1148 Objective Remarks GENERAL: SKIN: Warm and dry. HEAD: Atraumatic. Normocephalic. EYES: Pupils equal and round. No scleral icterus. No injection or drainage. ENT: No nasal bleeding or discharge. Mucous membranes pink and moist. NECK: Trachea midline. No JVD. CARDIOVASCULAR: Regular rate and rhythm. RESPIRATORY: No accessory muscle use. Clear to auscultation. Breath sounds equal bilaterally. GASTROINTESTINAL: Abdomen soft, non-tender, nondistended. Hepatic and splenic margins not palpable. MUSCULOSKELETAL: Extremities without clubbing, cyanosis, or edema. No obvious deformities. NEUROLOGICAL: Awake and alert. No obvious cranial nerve deficits. Motor grossly within normal limits. Five out of 5 muscle strength in the arms and legs. Normal speech. PSYCHIATRIC: Appropriate mood and affect; insight and judgment normal. Assessment and Plan Assessment and Plan COPD PNA , IMPROVED LEUKOCYTOSIS PLAN O2 NEEDED BRONCHODILATORS ID CONSULT Josie Galindo MD Sep 19, 2016 17:40
[2016-09-19] MEDS: INSULIN DETEMIR 100 UNITS/ML VIAL SQ SCH (21:00)
[2016-09-19] MEDS: ATORVASTATIN 20 MG TAB PO SCH (21:04)
[2016-09-20] VITALS (12 sets, daily range): BP systolic 80–128; BP diastolic 52–83; PULSE 68–70; RESP 16–22; TEMP 97.5–99.3; O2SAT 91–100
[2016-09-20] MEDS: SODIUM CHLOR 0.9% 1000 ML INJ 1,000 ML IV SCH ×3 (03:25→19:25)
[2016-09-20] MEDS ORDERED: VANCOMYCIN 1,000 MG/NS 250 ML IV SCH ×2 (05:00)
[2016-09-20] MEDS: HEPARIN SODIUM - SQ 10,000 UNITS/ML VIAL SQ SCH ×4 (06:00→21:22)
[2016-09-20] MEDS: LEVOTHYROXINE SODIUM 150 MCG TAB PO SCH (06:00)
[2016-09-20] MEDS: METOPROLOL SUCCINATE 50 MG EXTENDED RELEASE TAB PO SCH ×2 (09:00→09:29)
[2016-09-20] MEDS: PANTOPRAZOLE SOD 40 MG DELAYED RELEASE TAB PO SCH (09:28)
[2016-09-20] MEDS: acetaZOLAMIDE 250 MG TAB PO SCH (09:28)
[2016-09-20] MEDS: FINASTERIDE 5 MG TAB PO SCH (09:28)
[2016-09-20] MEDS: predniSONE 20 MG TAB PO SCH (09:29)
[2016-09-20] MEDS: SACUBITRIL/VALSARTAN 49 MG-51 MG TAB PO SCH (09:29)
[2016-09-20] MEDS: SOTALOL HCL 80 MG TAB PO SCH ×3 (09:29→21:22)
--- NOTE | 2016-09-20 10:40 | HHI.PR ---
Subjective Remarks Patient's bp stable overnight Patient now hypotensive after getting medications patient denies cp/sob denies fevers/chills no cough no diarrhea Objective Vitals Vital Signs Date Time Temp Pulse Resp B/P Pulse Ox O2 Delivery O2 Flow Rate FiO2 09/20/16 06:00 68 09/20/16 04:00 98.3 68 20 128/83 96 09/20/16 04:00 68 09/20/16 02:00 69 09/20/16 00:00 68 09/20/16 00:00 98.4 68 16 112/65 91 09/19/16 22:00 68 09/19/16 20:00 68 09/19/16 20:00 98.2 68 21 107/67 93 09/19/16 18:00 70 09/19/16 16:00 69 09/19/16 16:00 97.7 69 21 84/59 96 09/19/16 14:00 69 09/19/16 13:00 98.0 69 20 104/66 95 09/19/16 12:00 70 09/19/16 11:51 69 09/19/16 11:51 97.7 72 18 80/54 95 I/O 09/19/16 09/19/16 09/19/16 09/20/16 09/20/16 09/20/16 07:00 15:00 23:00 07:00 15:00 23:00 Intake Total 1060 ml 750 ml 1164 ml Output Total 175 ml 275 ml 620 ml Balance 885 ml 475 ml 544 ml Intake Oral 60 ml 325 ml 375 ml IV Total 1000 ml 425 ml 789 ml Output Urine Total 175 ml 275 ml 620 ml # Bowel Movements 0 Result Diagram: 09/19/16 1148 09/19/16 1148 Imaging Last Impressions Chest X-Ray 09/18/16 0000 Signed Impressions: Service Date/Time: Sunday, September 18, 2016 09:36 - CONCLUSION: Findings very similar to prior study of 09/16/2016. Mild consolidation versus atelectasis in the right midlung. Garrett Carlton MD Objective Remarks GENERAL: This is a pleasant, extremely [place] elderly male patient, in no apparent distress. SKIN: Two small fissures to medial gluteal cleft that are moisture and friction related.Periwound noted with denuded blanchable erythema. Patient also noted with small area of resolving moisture related partial thickness skin loss to R medial buttock.No pressure injuries seen at this time. HEAD: Atraumatic. Normocephalic. EYES: No scleral icterus. No injection or drainage. ENT: Nose without bleeding, purulent drainage. NECK: Trachea midline. No JVD or lymphadenopathy. CARDIOVASCULAR: Regular rate and rhythm without murmurs, gallops, or rubs. RESPIRATORY: Crackles in the left lower lung field. The rest of the lungs is clear to auscultation. GASTROINTESTINAL: Abdomen soft, non-tender, nondistended. No guarding. MUSCULOSKELETAL: Extremities without clubbing, cyanosis, or edema. No calf tenderness. NEUROLOGICAL: Awake and alert. Motor and sensory grossly within normal limits. Normal speech. Procedures None Medications and IVs Current Medications Medications (Trade) Dose Ordered Sig/Taylor Route Start Time Stop Time Status Last Admin (Diamox) 500 mg DAILY PO 09/16/16 09:00 09/20/16 09:28 (Lipitor) 20 mg HS PO 09/16/16 21:00 09/19/16 21:04 (Proscar) 5 mg DAILY PO 09/16/16 09:00 09/20/16 09:28 (Lasix) 40 mg DAILY@06,18 PO 09/16/16 06:00 Hold 09/18/16 05:57 (Levemir Inj) 10 units HS SQ 09/16/16 21:00 09/19/16 21:00 (Synthroid) 150 mcg DAILY@0600 PO 09/16/16 06:00 09/20/16 06:00 (Zofran Liq) 4 mg Q8H PRN PO 09/15/16 23:00 (Protonix) 40 mg DAILY PO 09/16/16 09:00 09/20/16 09:28 Patient Own Medication PT OWN MED: [Florast... BID PO 09/17/16 09:00 Hold (Entresto 49-51 Mg) 1 tab BID PO 09/15/16 23:00 09/20/16 09:29 (Betapace) 120 mg Q12HR PO 09/15/16 23:00 09/20/16 09:29 (Pill Splitter) 1 ea UNSCH PRN OTHER 09/15/16 23:15 (Toprol Xl) 50 mg DAILY PO 09/16/16 09:00 09/17/16 09:28 (Percocet 5-325 Mg) 1 tab Q4H PRN PO 09/18/16 08:00 09/19/16 08:19 (Heparin Inj) 5,000 units Q8HR SQ 09/18/16 14:00 09/20/16 06:00 Miscellaneous Information SPECIFIC LAB TO BE CHEMA... ONCE ONCE XX 09/22/16 04:45 09/22/16 04:46 (NS 1000 ml Inj) 1,000 ml @ 125 mls/hr Q8H IV 09/19/16 10:30 09/20/16 03:25 (Levaquin) 750 mg Q48H PO 09/21/16 11:00 (K-Phos Neutral) 250 mg Q8H PO 09/20/16 11:00 Urinary Catheter: No Vascular Central Line Catheter: No A/P Problem List: (1) Sepsis ICD Code: A41.9 Status: Acute Plan: ? Sepsis syndrome, the patient has persistent leukocytosis and hypotension with elevated lactic acid. Repeat chest x-ray obtained on 09/19/16 shows mild consolidation versus atelectasis in the right midlung. Patient is sp IV vancomycin and IV Levaquin. ID consultation appreciated - Vancomycin discontinued and now on po Levaquin labs pending but WBC previously elevated Lactic acid improved after IV fluids Follow-up blood cultures ----> pending (2) Hypotension ICD Code: I95.9 Status: Acute Plan: Patient with stable bp overnight - now hypotensive after medications administered. ? HCAP, Most likely due secondary to medications - I will hold Entresto and Metoprolol. Continue Sotalol (3) Encephalopathy acute ICD Code: G93.40 Status: Acute Plan: resolved. Patient awake and alert. Encephalopathy due to low bp, ? metabolic due to infection. (4) Non-sustained ventricular tachycardia ICD Code: I47.2 Status: Acute (5) History of pneumonia ICD Code: Z87.01 Status: Resolved (6) Wound of skin ICD Code: R23.8 Status: Acute (7) Hypothyroidism ICD Code: E03.9 Status: Acute (8) Atrial fibrillation ICD Code: I48.91 Status: Chronic (9) Congestive heart failure ICD Code: I50.9 Status: Chronic (10) Leukocytosis ICD Code: D72.829 Status: Acute (11) COPD (chronic obstructive pulmonary disease) ICD Code: J44.9 Status: Chronic (12) Generalized weakness ICD Code: R53.1 Status: Acute Assessment and Plan (1) Non-sustained ventricular tachycardia Plan: Non-Sustained ventricular tachycardia - Cardiology consulted - appreciate Dr Calderon recommendations - Stable. No VT x3 days - Continue Sotalol - Hold Toprol due to hypotension. (2) History of pneumonia Plan: Patient has leukocytosis of 23 on admission - trending down Patchy area of infiltrate throughout the right lung, left lower lung cardiomegaly. Pulmonary following. Appreciate recommendations. Good oxygen saturation on room air. 09/19 Patient likely with HCAP - CXR shows mild consolidation 02 sat now 92% on marine, air. 09/20 on po levaquin - pneumonia has been treated appropriately. (3) Wound of skin Plan: - appreciate wound care evaluation Two small fissures to medial gluteal cleft that are moisture and friction related.Periwound noted with denuded blanchable erythema. Patient also noted with small area of resolving moisture related partial thickness skin loss to R medial buttock.No pressure injuries seen. - Calazime barrier cream bid and leave wound open to air. - Patient has some pain in wound area - Percocet added to therapy to control pain which seems better. - no signs of infection in wound (4) Hypothyroidism Plan: On levothyroxine. TSH within normal range. (5) Atrial fibrillation Plan: rate controlled. Continue with sotalol, metoprolol XL. Ventricular fibrillation with multiple pacer spikes. Fu cardiology recommendations. Pacer was adjusted on 09/16 by hydraulic technician. Eliquis placed on hold since ablation being considered. Continue to hold eliquis for now - Will resume as per cardiology recommendations. (6) Congestive heart failure Plan: As per cardiology report - Ef 15 to 19%. Seems to be stable. Hold lasix - due to hypotension and suspected sepsis. Acute on chronic systolic heart failure, now resolved. Patient on Iv fluids - Will decrease rate and as soon as bp improved then will discontinue. (7) Leukocytosis Plan: WBC 23 K on admission Trending down to 20 K today Likely due to steroid use, stres after hypotension WBC still elevated yesterday at 22.0. Monitor cbc. No fevers or other signs of infection. (8) COPD (chronic obstructive pulmonary disease) Plan: Dr Stanley from pulmonary following. 09/20 DC prednisone Repeat chest x-ray - reviewed by me shows improved congestion and mild consolidation. (9) Generalized weakness Plan: Have very long conversation with the patient's . The patient 5 very concerned that the patient is getting weaker. She also states that they would prefer to take him home. However since the patient is weak and requires help to get up, I explained to her that it is probably better for the patient to be discharged to a rehabilitation center. PT 7 days a week Patient will need rehab at rehab center - no agrees to this. GI prophylaxis - PPI DVT prophylaxis - SCD's, will add heparin SQ since patient is weak with decreased mobility and Eliquis still on hold. Discharge Planning Continue to monitor in the ICU until bp stable. Dc to rehab once bp stable. Problem Qualifiers (1) Hypothyroidism: Qualified Code: E03.9 - Hypothyroidism, unspecified type (2) Atrial fibrillation: Qualified Code: I48.2 - Chronic atrial fibrillation (3) Congestive heart failure: Qualified Code: I50.22 - Chronic systolic congestive heart failure (4) COPD (chronic obstructive pulmonary disease): Qualified Code: J42 - Chronic bronchitis, unspecified chronic bronchitis type Lul Herron MD Sep 20, 2016 10:40
[2016-09-20] MEDS: POTASSIUM PHOSPHATE/SODIUM PHOSPHATE 250 MG TAB PO SCH ×2 (11:27→21:22)
[2016-09-20 12:45] LABS: AUTOMATED NEUTROPHIL # 16.7 TH/MM3 (1.8-7.7); BASOPHIL % 0.2 % (0.0-2.0); EOSINOPHIL # 0.2 TH/MM3 (0-0.4); EOSINOPHIL % 0.8 % (0.0-4.0); LYMPH % 3.9 % (9.0-44.0); LYMPHOCYTE # 0.7 TH/MM3 (1.0-4.8); MEAN CELL VOLUME 89.7 FL (80.0-100.0); MEAN CORPUSCULAR HEMOGLOBIN 28.3 PG (27.0-34.0); MEAN CORPUSCULAR HGB CONC 31.5 % (32.0-36.0); MONO % 5.2 % (0.0-8.0); NEUT % 89.9 % (16.0-70.0); PLATELET COUNT 74 TH/MM3 (150-450); RED BLOOD COUNT 4.46 MIL/MM3 (4.50-5.90); RED CELL DISTRIBUTION WIDTH 18.5 % (11.6-17.2); WHITE BLOOD COUNT 18.6 TH/MM3 (4.0-11.0)
[2016-09-20 12:49] LABS: HEMO FLAGS AUTO DIFF
[2016-09-20 13:11] LABS: BICARBONATE 23.9 MEQ/L (21.0-32.0); POTASSIUM 3.8 MEQ/L (3.5-5.1); TOTAL BILIRUBIN ADULT 0.7 MG/DL (0.2-1.0)
[2016-09-20 13:19] LABS: PLATELET ESTIMATE SMEAR LOW (NORMAL); PLATELET MORPHOLOGY NORMAL (NORMAL); SCAN/DIFF AUTO DIFF CONFIRMED
[2016-09-20 14:51] LABS: CALCIUM-PROTEIN CORRECTED 8.6 MG/DL (8.5-10.1)
--- NOTE | 2016-09-20 15:15 | HHI.PR ---
Subjective Remarks ALERT NO SOB WBC DECREASED NOW IN ICU , FOR LOW BP , BETTER WITH HYDRATION BP ADEQUATE Objective Vital Signs Date Time Temp Pulse Resp B/P Pulse Ox O2 Delivery O2 Flow Rate FiO2 09/20/16 12:00 99.3 70 18 113/67 100 09/20/16 12:00 69 09/20/16 10:00 69 09/20/16 08:00 69 09/20/16 08:00 97.5 69 20 91/52 94 09/20/16 06:00 68 09/20/16 04:00 98.3 68 20 128/83 96 09/20/16 04:00 68 09/20/16 02:00 69 09/20/16 00:00 68 09/20/16 00:00 98.4 68 16 112/65 91 09/19/16 22:00 68 09/19/16 20:00 68 09/19/16 20:00 98.2 68 21 107/67 93 09/19/16 18:00 70 09/19/16 16:00 69 09/19/16 16:00 97.7 69 21 84/59 96 I/O 09/19/16 09/19/16 09/19/16 09/20/16 09/20/16 09/20/16 07:00 15:00 23:00 07:00 15:00 23:00 Intake Total 1060 ml 750 ml 1164 ml Output Total 175 ml 275 ml 620 ml Balance 885 ml 475 ml 544 ml Intake Oral 60 ml 325 ml 375 ml IV Total 1000 ml 425 ml 789 ml Output Urine Total 175 ml 275 ml 620 ml # Bowel Movements 0 Result Diagram: 09/20/16 1130 09/20/16 1130 Objective Remarks Last Impressions Chest X-Ray 09/18/16 0000 Signed Impressions: Service Date/Time: Sunday, September 18, 2016 09:36 - CONCLUSION: Findings very similar to prior study of 09/16/2016. Mild consolidation versus atelectasis in the right midlung. Garrett Carlton MD GENERAL: SKIN: Warm and dry. HEAD: Atraumatic. Normocephalic. EYES: Pupils equal and round. No scleral icterus. No injection or drainage. ENT: No nasal bleeding or discharge. Mucous membranes pink and moist. NECK: Trachea midline. No JVD. CARDIOVASCULAR: Regular rate and rhythm. RESPIRATORY: No accessory muscle use. Clear to auscultation. Breath sounds equal bilaterally. GASTROINTESTINAL: Abdomen soft, non-tender, nondistended. Hepatic and splenic margins not palpable. MUSCULOSKELETAL: Extremities without clubbing, cyanosis, or edema. No obvious deformities. NEUROLOGICAL: Awake and alert. No obvious cranial nerve deficits. Motor grossly within normal limits. Five out of 5 muscle strength in the arms and legs. Normal speech. PSYCHIATRIC: Appropriate mood and affect; insight and judgment normal. Assessment and Plan Assessment and Plan COPD PNA , IMPROVED LEUKOCYTOSIS , IMPROVING CHF PLAN O2 NEEDED BRONCHODILATORS ID CONSULT Josie Galindo MD Sep 20, 2016 15:15
[2016-09-20] MEDS: INSULIN DETEMIR 100 UNITS/ML VIAL SQ SCH (21:00)
[2016-09-20] MEDS: ATORVASTATIN 20 MG TAB PO SCH (21:22)
--- NOTE | 2016-09-20 23:40 | HHI.PR ---
Subjective Remarks Feeling better Objective Vital Signs Date Time Temp Pulse Resp B/P Pulse Ox O2 Delivery O2 Flow Rate FiO2 09/20/16 18:00 69 09/20/16 16:00 98.4 68 22 107/69 100 09/20/16 16:00 68 09/20/16 14:00 69 09/20/16 12:00 99.3 70 18 113/67 100 09/20/16 12:00 69 09/20/16 10:00 69 09/20/16 08:00 69 09/20/16 08:00 97.5 69 20 91/52 94 09/20/16 06:00 68 09/20/16 04:00 98.3 68 20 128/83 96 09/20/16 04:00 68 09/20/16 02:00 69 09/20/16 00:00 68 09/20/16 00:00 98.4 68 16 112/65 91 I/O 09/19/16 09/19/16 09/19/16 09/20/16 09/20/16 09/20/16 07:00 15:00 23:00 07:00 15:00 23:00 Intake Total 1060 ml 750 ml 1164 ml 529 ml Output Total 175 ml 275 ml 620 ml 600 ml Balance 885 ml 475 ml 544 ml -71 ml Intake Oral 60 ml 325 ml 375 ml 350 ml IV Total 1000 ml 425 ml 789 ml 179 ml Output Urine Total 175 ml 275 ml 620 ml 600 ml # Voids 1 # Bowel Movements 0 0 Result Diagram: 09/20/16 1130 09/20/16 1130 Imaging Alert, fully oriented, in bed Lungs: ventilated Heart: S1, S2 regular Abdomen: soft, no mass Ext: no edema Last Impressions Chest X-Ray 09/18/16 0000 Signed Impressions: Service Date/Time: Sunday, September 18, 2016 09:36 - CONCLUSION: Findings very similar to prior study of 09/16/2016. Mild consolidation versus atelectasis in the right midlung. Garrett Carlton MD Current Medications Medications (Trade) Dose Ordered Sig/Taylor Route Start Time Stop Time Status Last Admin (Diamox) 500 mg DAILY PO 09/16/16 09:00 09/20/16 09:28 (Lipitor) 20 mg HS PO 09/16/16 21:00 09/20/16 21:22 (Proscar) 5 mg DAILY PO 09/16/16 09:00 09/20/16 09:28 (Lasix) 40 mg DAILY@06,18 PO 09/16/16 06:00 Hold 09/18/16 05:57 (Levemir Inj) 10 units HS SQ 09/16/16 21:00 09/20/16 21:00 (Synthroid) 150 mcg DAILY@0600 PO 09/16/16 06:00 09/20/16 06:00 (Zofran Liq) 4 mg Q8H PRN PO 09/15/16 23:00 (Protonix) 40 mg DAILY PO 09/16/16 09:00 09/20/16 09:28 Patient Own Medication PT OWN MED: [Florast... BID PO 09/17/16 09:00 Hold (Entresto 49-51 Mg) 1 tab BID PO 09/15/16 23:00 Hold 09/20/16 09:29 (Betapace) 120 mg Q12HR PO 09/15/16 23:00 09/20/16 09:29 (Pill Splitter) 1 ea UNSCH PRN OTHER 09/15/16 23:15 (Toprol Xl) 50 mg DAILY PO 09/16/16 09:00 Hold 09/17/16 09:28 (Percocet 5-325 Mg) 1 tab Q4H PRN PO 09/18/16 08:00 09/19/16 08:19 (Heparin Inj) 5,000 units Q8HR SQ 09/18/16 14:00 09/20/16 06:00 Miscellaneous Information SPECIFIC LAB TO BE CHEMA... ONCE ONCE XX 09/22/16 04:45 09/22/16 04:46 (NS 1000 ml Inj) 1,000 ml @ 125 mls/hr Q8H IV 09/19/16 10:30 09/20/16 03:25 (Levaquin) 750 mg Q48H PO 09/21/16 11:00 (K-Phos Neutral) 250 mg Q8H PO 09/20/16 11:00 09/20/16 21:22 Assessment and Plan Problem List: (1) Sustained ventricular tachycardia Status: Acute Plan: No VT since on sotalol HR control. Some hypotension. Meds were held this morning. Doing better. Can be DH if stable in AM Will need rehab. (2) Congestive heart failure Status: Chronic Plan: Continue with current medication Problem Qualifiers (1) Congestive heart failure: Qualified Code: I50.22 - Chronic systolic congestive heart failure Martin Calderon MD Sep 20, 2016 23:40
[2016-09-21] VITALS (12 sets, daily range): BP systolic 87–123; BP diastolic 49–90; PULSE 64–70; RESP 14–27; TEMP 97.6–98.8; O2SAT 97–98
[2016-09-21] MEDS: POTASSIUM PHOSPHATE/SODIUM PHOSPHATE 250 MG TAB PO SCH ×3 (03:00→18:06)
[2016-09-21] MEDS: SODIUM CHLOR 0.9% 1000 ML INJ 1,000 ML IV SCH ×3 (03:25→18:06)
[2016-09-21] MEDS ORDERED: LEVOFLOXACIN 750 MG/DEXTROSE 150 ML IV SCH (04:00)
[2016-09-21] MEDS: LEVOTHYROXINE SODIUM 150 MCG TAB PO SCH (06:00)
[2016-09-21] MEDS: HEPARIN SODIUM - SQ 10,000 UNITS/ML VIAL SQ SCH (06:00)
[2016-09-21] MEDS: SOTALOL HCL 80 MG TAB PO SCH ×2 (07:58→20:18)
[2016-09-21] MEDS: PANTOPRAZOLE SOD 40 MG DELAYED RELEASE TAB PO SCH (07:59)
[2016-09-21] MEDS: acetaZOLAMIDE 250 MG TAB PO SCH (08:00)
[2016-09-21] MEDS: FINASTERIDE 5 MG TAB PO SCH (08:00)
--- NOTE | 2016-09-21 08:30 | HHI.PR ---
Subjective Remarks fu chf, VT, hypotension Patient denies cp/sob no further arrhythmias stable vital signs Objective Vitals Vital Signs Date Time Temp Pulse Resp B/P Pulse Ox O2 Delivery O2 Flow Rate FiO2 09/21/16 06:00 68 09/21/16 04:00 68 09/21/16 04:00 98.0 68 18 102/49 98 09/21/16 02:00 68 09/21/16 00:00 68 09/21/16 00:00 97.6 68 17 112/72 98 09/20/16 22:00 68 09/20/16 20:00 97.8 68 20 80/52 93 09/20/16 20:00 68 09/20/16 18:00 69 09/20/16 16:00 98.4 68 22 107/69 100 09/20/16 16:00 68 09/20/16 14:00 69 09/20/16 12:00 99.3 70 18 113/67 100 09/20/16 12:00 69 09/20/16 10:00 69 I/O 09/20/16 09/20/16 09/20/16 09/21/16 09/21/16 09/21/16 07:00 15:00 23:00 07:00 15:00 23:00 Intake Total 1164 ml 529 ml 225 ml 75 ml Output Total 620 ml 600 ml 100 ml 350 ml Balance 544 ml -71 ml 125 ml -275 ml Intake Oral 375 ml 350 ml 225 ml 75 ml IV Total 789 ml 179 ml 0 ml Output Urine Total 620 ml 600 ml 100 ml 350 ml # Voids 1 1 # Bowel Movements 0 0 0 0 Result Diagram: 09/20/16 1130 09/20/16 1130 Imaging Last Impressions Chest X-Ray 09/18/16 0000 Signed Impressions: Service Date/Time: Sunday, September 18, 2016 09:36 - CONCLUSION: Findings very similar to prior study of 09/16/2016. Mild consolidation versus atelectasis in the right midlung. Garrett Carlton MD Objective Remarks GENERAL: This is a pleasant, extremely [place] elderly male patient, in no apparent distress. SKIN: Two small fissures to medial gluteal cleft that are moisture and friction related.Periwound noted with denuded blanchable erythema. Patient also noted with small area of resolving moisture related partial thickness skin loss to R medial buttock.No pressure injuries seen at this time. HEAD: Atraumatic. Normocephalic. EYES: No scleral icterus. No injection or drainage. ENT: Nose without bleeding, purulent drainage. NECK: Trachea midline. No JVD or lymphadenopathy. CARDIOVASCULAR: Regular rate and rhythm without murmurs, gallops, or rubs. RESPIRATORY: Mild crackles at bases bilaterally. No wheezing or rhonchi auscultated. GASTROINTESTINAL: Abdomen soft, non-tender, nondistended. No guarding. MUSCULOSKELETAL: Extremities without clubbing, cyanosis, or edema. No calf tenderness. NEUROLOGICAL: Awake and alert. Motor and sensory grossly within normal limits. Normal speech. Procedures None Medications and IVs Current Medications Medications (Trade) Dose Ordered Sig/Taylor Route Start Time Stop Time Status Last Admin (Diamox) 500 mg DAILY PO 09/16/16 09:00 09/21/16 08:00 (Lipitor) 20 mg HS PO 09/16/16 21:00 09/20/16 21:22 (Proscar) 5 mg DAILY PO 09/16/16 09:00 09/21/16 08:00 (Lasix) 40 mg DAILY@06,18 PO 09/16/16 06:00 Hold 09/18/16 05:57 (Levemir Inj) 10 units HS SQ 09/16/16 21:00 09/20/16 21:00 (Synthroid) 150 mcg DAILY@0600 PO 09/16/16 06:00 09/21/16 06:00 (Zofran Liq) 4 mg Q8H PRN PO 09/15/16 23:00 (Protonix) 40 mg DAILY PO 09/16/16 09:00 09/21/16 07:59 Patient Own Medication PT OWN MED: [Florast... BID PO 09/17/16 09:00 Hold (Betapace) 120 mg Q12HR PO 09/15/16 23:00 09/21/16 07:58 (Pill Splitter) 1 ea UNSCH PRN OTHER 09/15/16 23:15 (Percocet 5-325 Mg) 1 tab Q4H PRN PO 09/18/16 08:00 09/19/16 08:19 (Heparin Inj) 5,000 units Q8HR SQ 09/18/16 14:00 09/20/16 06:00 Miscellaneous Information SPECIFIC LAB TO BE ... ONCE ONCE XX 09/22/16 04:45 09/22/16 04:46 (NS 1000 ml Inj) 1,000 ml @ 125 mls/hr Q8H IV 09/19/16 10:30 09/20/16 03:25 (Levaquin) 750 mg Q48H PO 09/21/16 11:00 (K-Phos Neutral) 250 mg Q8H PO 09/20/16 11:00 09/21/16 03:00 (Lasix) 40 mg DAILY PO 09/21/16 09:00 (Toprol Xl) 25 mg DAILY PO 09/21/16 14:00 (Entresto 24-26 Mg) 1 tab BID PO 09/21/16 09:00 Urinary Catheter: No Vascular Central Line Catheter: No A/P Problem List: (1) Sepsis ICD Code: A41.9 Status: Acute (2) Hypotension ICD Code: I95.9 Status: Acute (3) Encephalopathy acute ICD Code: G93.40 Status: Acute (4) Non-sustained ventricular tachycardia ICD Code: I47.2 Status: Acute (5) History of pneumonia ICD Code: Z87.01 Status: Resolved (6) Wound of skin ICD Code: R23.8 Status: Acute (7) Hypothyroidism ICD Code: E03.9 Status: Acute (8) Atrial fibrillation ICD Code: I48.91 Status: Chronic (9) Congestive heart failure ICD Code: I50.9 Status: Chronic (10) Leukocytosis ICD Code: D72.829 Status: Acute (11) COPD (chronic obstructive pulmonary disease) ICD Code: J44.9 Status: Chronic (12) Generalized weakness ICD Code: R53.1 Status: Acute (13) Thrombocytopenia ICD Code: D69.6 Status: Acute Plan: Platelet count has been dropping from 130 -102-93-74. We'll check for heparin-induced platelet antibodies. If platelets continue to drop them will get hematology consultation. Assessment and Plan (1) Non-sustained ventricular tachycardia Plan: Non-Sustained ventricular tachycardia - Cardiology consulted - appreciate Dr Calderon recommendations - Stable. No VT x3 days - Continue Sotalol - Due to hypotension, will decrease dose of Toprol 25 mg daily. (2) History of pneumonia Plan: Patient has leukocytosis of 23 on admission - trending down Patchy area of infiltrate throughout the right lung, left lower lung cardiomegaly. Pulmonary following. Appreciate recommendations. Good oxygen saturation on room air. 09/19 Patient likely with HCAP - CXR shows mild consolidation 02 sat now 92% on marine, air. 09/21 Good oxygen saturation, patient on PO Levaquin. (3) Wound of skin Plan: - appreciate wound care evaluation Two small fissures to medial gluteal cleft that are moisture and friction related.Periwound noted with denuded blanchable erythema. Patient also noted with small area of resolving moisture related partial thickness skin loss to R medial buttock.No pressure injuries seen. - Calazime barrier cream bid and leave wound open to air. - Patient has some pain in wound area - Percocet added to therapy to control pain which seems better. - no signs of infection in wound (4) Hypothyroidism Plan: On levothyroxine. TSH within normal range. (5) Atrial fibrillation Plan: rate controlled. Continue with sotalol, metoprolol XL. Ventricular fibrillation with multiple pacer spikes. Fu cardiology recommendations. Pacer was adjusted on 09/16 by geophysical data technician. Eliquis held since ablation was in consideration. Will resume Eliquis if platelets are stable or improving. Platelets on 09/20 74. (6) Congestive heart failure Plan: As per cardiology report - Ef 15 to 19%. Seems to be stable. Hold lasix - due to hypotension and suspected sepsis. Acute on chronic systolic heart failure, now resolved. 09/21 IV fluids discontinued. Patient has good oxygen saturation. Resume Lasix. (7) Leukocytosis Plan: WBC 23 K on admission Trending down to 20 K today Likely due to steroid use, stres after hypotension WBC trending down - fu CBC w diff today. (8) COPD (chronic obstructive pulmonary disease) Plan: Dr Stanley from pulmonary following. 09/20 DC prednisone Repeat chest x-ray - reviewed by me shows improved congestion and mild consolidation. (9) Generalized weakness Plan: Have very long conversation with the patient's . The patient 5 very concerned that the patient is getting weaker. She also states that they would prefer to take him home. However since the patient is weak and requires help to get up, I explained to her that it is probably better for the patient to be discharged to a rehabilitation center. PT 7 days a week Patient will need rehab at rehab center - agrees with this. GI prophylaxis - PPI DVT prophylaxis - SCD's, discontinue heparin SQ due to drop on platelet count. Discharge Planning Possible DC to rehab today if platelets stable and bp remains stable. Problem Qualifiers (1) Hypothyroidism: Qualified Code: E03.9 - Hypothyroidism, unspecified type (2) Atrial fibrillation: Qualified Code: I48.2 - Chronic atrial fibrillation (3) Congestive heart failure: Qualified Code: I50.22 - Chronic systolic congestive heart failure (4) COPD (chronic obstructive pulmonary disease): Qualified Code: J42 - Chronic bronchitis, unspecified chronic bronchitis type Lul Herron MD Sep 21, 2016 08:30
[2016-09-21] MEDS ORDERED: SACUBITRIL/VALSARTAN 24 MG-26 MG TAB PO SCH (09:00)
--- NOTE | 2016-09-21 09:04 | HHI.PR ---
Subjective Remarks ALERT NO SOB WBC DECREASED NOW IN ICU , FOR LOW BP , BETTER WITH HYDRATION BP ADEQUATE Objective Vital Signs Date Time Temp Pulse Resp B/P Pulse Ox O2 Delivery O2 Flow Rate FiO2 09/21/16 06:00 68 09/21/16 04:00 68 09/21/16 04:00 98.0 68 18 102/49 98 09/21/16 02:00 68 09/21/16 00:00 68 09/21/16 00:00 97.6 68 17 112/72 98 09/20/16 22:00 68 09/20/16 20:00 97.8 68 20 80/52 93 09/20/16 20:00 68 09/20/16 18:00 69 09/20/16 16:00 98.4 68 22 107/69 100 09/20/16 16:00 68 09/20/16 14:00 69 09/20/16 12:00 99.3 70 18 113/67 100 09/20/16 12:00 69 09/20/16 10:00 69 I/O 09/20/16 09/20/16 09/20/16 09/21/16 09/21/16 09/21/16 07:00 15:00 23:00 07:00 15:00 23:00 Intake Total 1164 ml 529 ml 225 ml 75 ml Output Total 620 ml 600 ml 100 ml 350 ml Balance 544 ml -71 ml 125 ml -275 ml Intake Oral 375 ml 350 ml 225 ml 75 ml IV Total 789 ml 179 ml 0 ml Output Urine Total 620 ml 600 ml 100 ml 350 ml # Voids 1 1 # Bowel Movements 0 0 0 0 Result Diagram: 09/20/16 1130 09/20/16 1130 Objective Remarks Last Impressions Chest X-Ray 09/18/16 0000 Signed Impressions: Service Date/Time: Sunday, September 18, 2016 09:36 - CONCLUSION: Findings very similar to prior study of 09/16/2016. Mild consolidation versus atelectasis in the right midlung. Garrett Carlton MD GENERAL: SKIN: Warm and dry. HEAD: Atraumatic. Normocephalic. EYES: Pupils equal and round. No scleral icterus. No injection or drainage. ENT: No nasal bleeding or discharge. Mucous membranes pink and moist. NECK: Trachea midline. No JVD. CARDIOVASCULAR: Regular rate and rhythm. RESPIRATORY: No accessory muscle use. Clear to auscultation. Breath sounds equal bilaterally. GASTROINTESTINAL: Abdomen soft, non-tender, nondistended. Hepatic and splenic margins not palpable. MUSCULOSKELETAL: Extremities without clubbing, cyanosis, or edema. No obvious deformities. NEUROLOGICAL: Awake and alert. No obvious cranial nerve deficits. Motor grossly within normal limits. Five out of 5 muscle strength in the arms and legs. Normal speech. PSYCHIATRIC: Appropriate mood and affect; insight and judgment normal. Assessment and Plan Assessment and Plan COPD PNA , IMPROVED LEUKOCYTOSIS , IMPROVING CHF PLAN O2 NEEDED BRONCHODILATORS ID CONSULT Josie Galindo MD Sep 21, 2016 09:04
[2016-09-21] MEDS: FUROSEMIDE 40 MG TAB PO SCH (09:23)
[2016-09-21 09:27] LABS: AUTOMATED NEUTROPHIL # 15.2 TH/MM3 (1.8-7.7); BASOPHIL % 0.2 % (0.0-2.0); EOSINOPHIL # 0.2 TH/MM3 (0-0.4); EOSINOPHIL % 1.1 % (0.0-4.0); HEMATOCRIT 38.6 % (39.0-51.0); LYMPH % 4.3 % (9.0-44.0); LYMPHOCYTE # 0.7 TH/MM3 (1.0-4.8); MEAN CELL VOLUME 87.9 FL (80.0-100.0); MEAN CORPUSCULAR HEMOGLOBIN 28.6 PG (27.0-34.0); MEAN CORPUSCULAR HGB CONC 32.5 % (32.0-36.0); MONO % 4.6 % (0.0-8.0); NEUT % 89.8 % (16.0-70.0); PLATELET COUNT 74 TH/MM3 (150-450); RED BLOOD COUNT 4.39 MIL/MM3 (4.50-5.90); RED CELL DISTRIBUTION WIDTH 18.1 % (11.6-17.2)
[2016-09-21 09:30] LABS: HEMO FLAGS AUTO DIFF
[2016-09-21 09:42] LABS: ANION GAP 7 MEQ/L (5-15); AST (GOT) 15 U/L (15-37); BICARBONATE 24.8 MEQ/L (21.0-32.0); BLOOD UREA NITROGEN 25 MG/DL (7-18); CHLORIDE 111 MEQ/L (98-107); GLOMERULAR FILTRATION RATE 80 ML/MIN (>89); POTASSIUM 3.7 MEQ/L (3.5-5.1); SODIUM (NA) 143 MEQ/L (136-145)
[2016-09-21 09:45] LABS: ALKALINE PHOSPHATASE 80 U/L (45-117); ALT (GPT) 58 U/L (12-78); TOTAL BILIRUBIN ADULT 0.7 MG/DL (0.2-1.0)
[2016-09-21 10:03] LABS: BANDS 1 % (0-6); EOSINOPHILS 1 % (0-4); MYELOCYTES 1 % (0-0); NEUTROPHIL # MANUAL DIFF 15.6 TH/MM3 (1.8-7.7); POLYS (SEG NEUTROPHILS) 90 % (16-70); WBC DIFF SAMPLE 100
[2016-09-21 10:05] LABS: PLATELET ESTIMATE SMEAR LOW (NORMAL); PLATELET MORPHOLOGY NORMAL (NORMAL); SCAN/DIFF FINAL DIFF MANUAL
[2016-09-21] MEDS ORDERED: LEVOFLOXACIN 750 MG TAB PO SCH (11:00)
[2016-09-21] MEDS: SACUBITRIL/VALSARTAN 24 MG-26 MG TAB PO SCH ×3 (11:30→19:50)
--- NOTE | 2016-09-21 13:21 | HHI.IDPN ---
Subjective Subjective Remarks Notes reviewed Feels better Not coughing Not SOB No VT Stable for D/C Antibiotics Levaquin Past Medical History Ventricular tachycardia - sustained Cardiomyopathy - EF 15 - 19% Atrial fibrillation - takes Eliquis Sick sinus syndrome [place] 1998 [place] 2007 - PM Hypothyroidism Renal insufficiency BPH Past Surgical History Coronary stents x 5 PM 2007 AICD/PM 2009 Allergies: Coded Allergies: Penicillin (Verified Allergy, Unknown, UNSURE, 09/15/16) Objective . Vital Signs Date Time Temp Pulse Resp B/P Pulse Ox O2 Delivery O2 Flow Rate FiO2 09/21/16 12:00 98.4 68 17 90/54 97 09/21/16 12:00 68 09/21/16 10:00 69 09/21/16 08:00 98.2 69 20 123/90 98 09/21/16 08:00 68 09/21/16 06:00 68 09/21/16 04:00 68 09/21/16 04:00 98.0 68 18 102/49 98 09/21/16 02:00 68 09/21/16 00:00 68 09/21/16 00:00 97.6 68 17 112/72 98 09/20/16 22:00 68 09/20/16 20:00 97.8 68 20 80/52 93 09/20/16 20:00 68 09/20/16 18:00 69 09/20/16 16:00 98.4 68 22 107/69 100 09/20/16 16:00 68 09/20/16 14:00 69 09/20/16 09/20/16 09/21/16 15:00 23:00 07:00 Intake Total 529 ml 225 ml 75 ml Output Total 600 ml 100 ml 350 ml Balance -71 ml 125 ml -275 ml Intake Oral 350 ml 225 ml 75 ml IV Total 179 ml 0 ml Output Urine Total 600 ml 100 ml 350 ml # Voids 1 1 # Bowel Movements 0 0 0 . Laboratory Tests Test 09/20/16 09/21/16 11:30 09:11 White Blood Count 18.6 TH/MM3 17.0 TH/MM3 Red Blood Count 4.46 MIL/MM3 4.39 MIL/MM3 Hemoglobin 12.6 GM/DL 12.6 GM/DL Hematocrit 40.0 % 38.6 % Mean Corpuscular Volume 89.7 FL 87.9 FL Mean Corpuscular Hemoglobin 28.3 PG 28.6 PG Mean Corpuscular Hemoglobin 31.5 % 32.5 % Concent Red Cell Distribution Width 18.5 % 18.1 % Platelet Count 74 TH/MM3 74 TH/MM3 Mean Platelet Volume 10.4 FL 10.0 FL Neutrophils (%) (Auto) 89.9 % 89.8 % Lymphocytes (%) (Auto) 3.9 % 4.3 % Monocytes (%) (Auto) 5.2 % 4.6 % Eosinophils (%) (Auto) 0.8 % 1.1 % Basophils (%) (Auto) 0.2 % 0.2 % Neutrophils # (Auto) 16.7 TH/MM3 15.2 TH/MM3 Lymphocytes # (Auto) 0.7 TH/MM3 0.7 TH/MM3 Monocytes # (Auto) 1.0 TH/MM3 0.8 TH/MM3 Eosinophils # (Auto) 0.2 TH/MM3 0.2 TH/MM3 Basophils # (Auto) 0.0 TH/MM3 0.0 TH/MM3 CBC Comment AUTO DIFF AUTO DIFF Differential Comment AUTO DIFF FINAL DIFF CONFIRMED MANUAL Platelet Estimate LOW LOW Platelet Morphology Comment NORMAL NORMAL Differential Total Cells 100 Counted Neutrophils % (Manual) 90 % Band Neutrophils % 1 % Lymphocytes % 5 % Monocytes % 2 % Eosinophils % 1 % Neutrophils # (Manual) 15.6 TH/MM3 Myelocytes 1 % Laboratory Tests Test 09/20/16 09/21/16 11:30 09:11 Sodium Level 140 MEQ/L 143 MEQ/L Potassium Level 3.8 MEQ/L 3.7 MEQ/L Chloride Level 110 MEQ/L 111 MEQ/L Carbon Dioxide Level 23.9 MEQ/L 24.8 MEQ/L Anion Gap 6 MEQ/L 7 MEQ/L Blood Urea Nitrogen 30 MG/DL 25 MG/DL Creatinine 0.83 MG/DL 0.91 MG/DL Estimat Glomerular Filtration 88 ML/MIN 80 ML/MIN Rate Random Glucose 143 MG/DL 82 MG/DL Calcium Level 7.5 MG/DL 7.5 MG/DL Protein Corrected Calcium 8.6 MG/DL Total Bilirubin 0.7 MG/DL 0.7 MG/DL Aspartate Amino Transf 24 U/L 15 U/L (AST/SGOT) Alanine Aminotransferase 68 U/L 58 U/L (ALT/SGPT) Alkaline Phosphatase 76 U/L 80 U/L Total Protein 4.9 GM/DL 4.8 GM/DL Albumin 2.1 GM/DL 2.2 GM/DL Microbiology Date/Time Procedure Status Source Growth 09/19/16 04:41 Aerobic Blood Culture - Preliminary Resulted Blood Peripheral NO GROWTH IN 2 DAYS 09/19/16 04:41 Anaerobic Blood Culture - Preliminary Resulted Blood Peripheral NO GROWTH IN 2 DAYS 09/19/16 04:47 Aerobic Blood Culture - Preliminary Resulted Blood Peripheral NO GROWTH IN 2 DAYS 09/19/16 04:47 Anaerobic Blood Culture - Preliminary Resulted Blood Peripheral NO GROWTH IN 2 DAYS Imaging Chest X-Ray 09/18/16 0000 Signed Impressions: Service Date/Time: Sunday, September 18, 2016 09:36 - CONCLUSION: Findings very similar to prior study of 09/16/2016. Mild consolidation versus atelectasis in the right midlung. Garrett Carlton MD Physical Exam GENERAL: awake and alert, not in respiratory distress. SKIN: Warm and dry, no generalized rash HEENT: [place] conjunctivae. No scleral icterus. Moist oral mucosa, no oral thrush. NECK: Supple, nontender, no meningeal signs. CARDIOVASCULAR: Regular rate and rhythm without murmurs, gallops, or rubs. AICD is in the left upper chest with no evidence of infection. RESPIRATORY: Clear to auscultation. Breath sounds equal bilaterally. No wheezes , rales, or rhonchi. GASTROINTESTINAL: Abdomen soft, non-tender, nondistended. Bowel sounds are present and normoactive. No hepato-splenomegaly, or palpable masses. No guarding. MUSCULOSKELETAL: Extremities without clubbing, cyanosis, or edema. No calf tenderness. NEUROLOGICAL: Non-focal PSYCH: Normal affect, calm and cooperative LINE: PIV with no evidence of infection Assessment & Plan Remarks IMPRESSION Leukocytosis, likely reactive, or due to meds - clinically his PNA is much improved - no evidence of new infection Pneumonia, CAP, better Pulmonary fibrosis, COPD Cardiomyopathy, has AICD/Pacer, has recurrent problem with VT RECOMMENDATION Stop Levaquin Clinically stable from ID standpoint For D/C to rehab D/W Bia Aguiar MD Sep 21, 2016 13:21
--- NOTE | 2016-09-21 13:37 | HHI.DCPOC ---
Discharge Care Plan Diagnosis: (1) Thrombocytopenia (2) Hypotension (3) Paroxysmal atrial fibrillation (4) CAD (coronary artery disease) (5) Dilated cardiomyopathy (6) Leukocytosis (7) Generalized weakness (8) Congestive heart failure (9) History of pneumonia (10) History of implantable cardioverter-defibrillator (ICD) placement (11) Sustained ventricular tachycardia (12) Atrial fibrillation (13) Hypothyroidism (14) Wound of skin (15) COPD (chronic obstructive pulmonary disease) Goals to Promote Your Health * To prevent worsening of your condition and complications * To maintain your health at the optimal level Directions to Meet Your Goals Take your medications as prescribed Follow your dietary instruction Follow activity as directed Keep your appointments as scheduled Take your immunizations and boosters as scheduled If your symptoms worsen call your PCP, if no PCP go to Urgent Care Center or Emergency Room Smoking is Dangerous to Your Health. Avoid second hand smoke Call the 24-hour hour crisis hotline for domestic abuse at Lul Herron MD Sep 21, 2016 13:37
[2016-09-21] MEDS: METOPROLOL SUCCINATE 25 MG EXTENDED RELEASE TAB PO SCH (14:00)
[2016-09-21] MEDS ORDERED: METO25TA6 PO (14:08)
[2016-09-21] MEDS ORDERED: SACU1TAB PO (14:08)
[2016-09-21] MEDS ORDERED: SOTA80 PO (14:08)
--- NOTE | 2016-09-21 14:24 | HHI.DS ---
Discharge Summary Admission Date Sep 16, 2016 at 01:06 Discharge Date: Sep 21, 2016 Admitting Diagnosis (1) Sepsis ICD Code: A41.9 Diagnosis: Principal (2) Hypotension ICD Code: I95.9 Diagnosis: Principal (3) Encephalopathy acute ICD Code: G93.40 Diagnosis: Principal (4) Non-sustained ventricular tachycardia ICD Code: I47.2 Diagnosis: Principal (5) History of pneumonia ICD Code: Z87.01 Diagnosis: Secondary (6) Wound of skin ICD Code: R23.8 Diagnosis: Principal (7) Hypothyroidism ICD Code: E03.9 Diagnosis: Secondary (8) Atrial fibrillation ICD Code: I48.91 Diagnosis: Secondary (9) Congestive heart failure ICD Code: I50.9 Diagnosis: Principal (10) Leukocytosis ICD Code: D72.829 Diagnosis: Principal (11) COPD (chronic obstructive pulmonary disease) ICD Code: J44.9 Diagnosis: Secondary (12) Generalized weakness ICD Code: R53.1 Diagnosis: Principal (13) Thrombocytopenia ICD Code: D69.6 Diagnosis: Principal Procedures None Brief History - From Admission Mr. Teran is an 81 year-old male with a past medical history of recent respiratory failure secondary to pneumonia, cardiomyopathy with EF 15 - 19%, CAD , cardiac stents, and AICD/pacemaker who transferred from [facility] [place] for recurrent ventricular tachycardia s/p AICD adjustments and discharge. The patient has been seen by Dr. Calderon, management lead. The patient is seen in his hospital room. The patient was admitted to [facility] [place] 09/03 for acute respiratory failure and bilateral pneumonia and required bipap on admission - didn't require intubation. The patient was hospitalized in May and June 2016 with similar symptoms. There is some concern for pulmonary fibrosis related to amiodarone which was discontinued at [facility] [place] one week ago on Monday 09/04. The patient had slow ventricular tachycardia for past two nights. The AICD tech made adjustments to have AICD fire at a lower heart rate on the first night and on the second night, the patient required sedation and the tech for AICD set the device to deliver a shock with successful rhythm conversion. The patient is here to determine if the v tach can be controlled with lower AICD threshold and medications or whether he will he require an ablation. The patient and his were previously told ablation would be too dangerous but, now, without amiodarone, there's some concern that ablation may be mandatory. A bronchoscopy has not been performed; Dr. Gonsales and Dr. Briceño who saw the patient at [facility] [place] felt the bronchoscopy would be too risky. Therefore, there has been no tissue diagnosis of pulmonary fibrosis. Dr. Galindo sees the patient as an outpatient but does not round at [facility] [place]. The patient adamantly denies any history of COPD. Last stress test was summer 2015. Generalized weakness from May and June 2016 hospitalizations. Reports fatigue but denies fever. Reports chronic cough and chronic "phlegm" production ; patient is back at baseline. Denies diabetes mellitus, COPD, liver problems, blood clots: PE, CVA, DVT; hypertension has resolved- off medications for BP x several weeks. CBC/BMP: 09/21/16 0911 09/21/16 0911 Significant Findings Laboratory Tests Test 09/18/16 09/19/16 09/19/16 09/20/16 23:23 08:21 11:48 11:30 White Blood Count 19.7 TH/MM3 22.0 TH/MM3 18.6 TH/MM3 (4.0-11.0) (4.0-11.0) (4.0-11.0) Red Blood Count 4.48 MIL/MM3 4.46 MIL/MM3 (4.50-5.90) (4.50-5.90) Hemoglobin 12.8 GM/DL 12.6 GM/DL (13.0-17.0) (13.0-17.0) Red Cell Distribution Width 18.2 % 18.2 % 18.5 % (11.6-17.2) (11.6-17.2) (11.6-17.2) Platelet Count 102 TH/MM3 93 TH/MM3 74 TH/MM3 (150-450) (150-450) (150-450) Neutrophils (%) (Auto) 93.9 % 93.4 % 89.9 % (16.0-70.0) (16.0-70.0) (16.0-70.0) Lymphocytes (%) (Auto) 1.9 % 2.0 % 3.9 % (9.0-44.0) (9.0-44.0) (9.0-44.0) Neutrophils # (Auto) 18.5 TH/MM3 20.5 TH/MM3 16.7 TH/MM3 (1.8-7.7) (1.8-7.7) (1.8-7.7) Lymphocytes # (Auto) 0.4 TH/MM3 0.4 TH/MM3 0.7 TH/MM3 (1.0-4.8) (1.0-4.8) (1.0-4.8) Ovalocytes 1+ (NORMAL) 1+ (NORMAL) Blood Urea Nitrogen 51 MG/DL (7-18) 38 MG/DL (7-18) 30 MG/DL (7-18) Estimat Glomerular Filtration 60 ML/MIN (>89) 78 ML/MIN (>89) 88 ML/MIN (>89) Rate Random Glucose 253 MG/DL 170 MG/DL 143 MG/DL (74-106) (74-106) (74-106) Lactic Acid Level 2.8 mmol/L (0.4-2.0) Calcium Level 7.7 MG/DL 7.9 MG/DL 7.5 MG/DL (8.5-10.1) (8.5-10.1) (8.5-10.1) B-Type Natriuretic Peptide 269 PG/ML (0-100) Urine Turbidity HAZY (CLEAR) Urine Leukocyte Esterase TRACE (NEG) Neutrophils % (Manual) 85 % (16-70) Band Neutrophils % 7 % (0-6) Lymphocytes % 3 % (9-44) Neutrophils # (Manual) 20.2 TH/MM3 (1.8-7.7) Platelet Estimate LOW (NORMAL) LOW (NORMAL) Chloride Level 108 MEQ/L 110 MEQ/L (98-107) (98-107) Phosphorus Level 1.7 MG/DL (2.5-4.9) Total Protein 5.0 GM/DL 4.9 GM/DL (6.4-8.2) (6.4-8.2) Albumin 2.2 GM/DL 2.1 GM/DL (3.4-5.0) (3.4-5.0) Mean Corpuscular Hemoglobin 31.5 % Concent (32.0-36.0) Monocytes # (Auto) 1.0 TH/MM3 (0-0.9) Test 09/21/16 09:11 White Blood Count 17.0 TH/MM3 (4.0-11.0) Red Blood Count 4.39 MIL/MM3 (4.50-5.90) Hemoglobin 12.6 GM/DL (13.0-17.0) Hematocrit 38.6 % (39.0-51.0) Red Cell Distribution Width 18.1 % (11.6-17.2) Platelet Count 74 TH/MM3 (150-450) Neutrophils (%) (Auto) 89.8 % (16.0-70.0) Lymphocytes (%) (Auto) 4.3 % (9.0-44.0) Neutrophils # (Auto) 15.2 TH/MM3 (1.8-7.7) Lymphocytes # (Auto) 0.7 TH/MM3 (1.0-4.8) Neutrophils % (Manual) 90 % (16-70) Lymphocytes % 5 % (9-44) Neutrophils # (Manual) 15.6 TH/MM3 (1.8-7.7) Myelocytes 1 % (0-0) Platelet Estimate LOW (NORMAL) Chloride Level 111 MEQ/L (98-107) Blood Urea Nitrogen 25 MG/DL (7-18) Estimat Glomerular Filtration 80 ML/MIN (>89) Rate Calcium Level 7.5 MG/DL (8.5-10.1) Total Protein 4.8 GM/DL (6.4-8.2) Albumin 2.2 GM/DL (3.4-5.0) Imaging Last Impressions Chest X-Ray 09/18/16 0000 Signed Impressions: Service Date/Time: Sunday, September 18, 2016 09:36 - CONCLUSION: Findings very similar to prior study of 09/16/2016. Mild consolidation versus atelectasis in the right midlung. Garrett Carlton MD PE at Discharge GENERAL: This is a pleasant, extremely [place] elderly male patient, in no apparent distress. SKIN: Two small fissures to medial gluteal cleft that are moisture and friction related.Periwound noted with denuded blanchable erythema. Patient also noted with small area of resolving moisture related partial thickness skin loss to R medial buttock.No pressure injuries seen at this time. HEAD: Atraumatic. Normocephalic. EYES: No scleral icterus. No injection or drainage. ENT: Nose without bleeding, purulent drainage. NECK: Trachea midline. No JVD or lymphadenopathy. CARDIOVASCULAR: Regular rate and rhythm without murmurs, gallops, or rubs. RESPIRATORY: Mild crackles at bases bilaterally. No wheezing or rhonchi auscultated. GASTROINTESTINAL: Abdomen soft, non-tender, nondistended. No guarding. MUSCULOSKELETAL: Extremities without clubbing, cyanosis, or edema. No calf tenderness. NEUROLOGICAL: Awake and alert. Motor and sensory grossly within normal limits. Normal speech. Pt update on day of discharge Bp stable. Medications staggered. Patient denies cp/sob. awake and alert. Platelets stable. HIT antibody pending. Avoid subcutaneous heparin. Hospital Course (1) Non-sustained ventricular tachycardia Plan: Non-Sustained ventricular tachycardia - Cardiology consulted - appreciate Dr Calderon recommendations - Stable. No further VT. - Continue Sotalol - Due to hypotension, will decrease dose of Toprol 25 mg daily. (2) History of pneumonia Plan: Patient has leukocytosis of 23 on admission - trending down Patchy area of infiltrate throughout the right lung, left lower lung cardiomegaly. Pulmonary following. Appreciate recommendations. Good oxygen saturation on room air. on 09/19 patient hypotensive - suspected HCAP and patient was started on IV Vancomycin and IV levaquin. ID consulted discontinued Vancomycin. Levaquin changed to oral as per ID and later discontinued on day of dicharge. (3) Wound of skin Plan: - appreciate wound care evaluation Two small fissures to medial gluteal cleft that are moisture and friction related.Periwound noted with denuded blanchable erythema. Patient also noted with small area of resolving moisture related partial thickness skin loss to R medial buttock.No pressure injuries seen. - Calazime barrier cream bid and leave wound open to air. - Patient has some pain in wound area - Percocet added to therapy to control pain which seems better. - no signs of infection in wound (4) Hypothyroidism Plan: On levothyroxine. TSH within normal range. (5) Atrial fibrillation Plan: rate controlled. Continue with sotalol, metoprolol XL. Ventricular fibrillation with multiple pacer spikes. Fu cardiology recommendations. Pacer was adjusted on 09/16 by vending technician. Eliquis held since ablation was in consideration. Resume Eliquis prior to Dc since platelets stable. (6) Congestive heart failure Plan: As per cardiology report - Ef 15 to 19%. Seems to be stable. Hold lasix - due to hypotension and suspected sepsis. Acute on chronic systolic heart failure, now resolved. 09/21 IV fluids discontinued. Patient has good oxygen saturation. Lasix resumed. Hypotension likely medications induced. (7) Leukocytosis Plan: WBC 23 K on admission Trending down to 20 K today Likely due to steroid use, stres after hypotension WBC trending down. Patient without signs of active infection. (8) COPD (chronic obstructive pulmonary disease) Plan: Dr Stanley from pulmonary following. Treated with Iv solumedrol later tapered down to prednisone. Repeat chest x-ray - reviewed by me shows improved congestion and mild consolidation. (9) Generalized weakness Plan: Have very long conversation with the patient's . The patient 5 very concerned that the patient is getting weaker. She also states that they would prefer to take him home. However since the patient is weak and requires help to get up, I explained to her that it is probably better for the patient to be discharged to a rehabilitation center. PT 7 days a week Patient will need rehab at rehab center - later agreed to this. (10) Thrombocytopenia Plan: Platelet count has been dropping from 130 -102-93-74. Checked for heparin-induced platelet antibodies. ---> Pending upon DC. Platelets stable and no signs of active bleeding - resume Eliquis GI prophylaxis - PPI DVT prophylaxis - SCD's, Patient on heparin SQ since off eliquis - held due to thrombocytopenia. Pt Condition on Discharge: Stable Discharge Disposition: Discharge to SNF Discharge Time: > 30 minutes Discharge Instructions DIET: Follow Instructions for: Heart Healthy Diet Activities you can perform: Regular-No Restrictions Follow up Referrals: Cardiology - 1 Week PCP Follow-up - 2-3 Days New Medications: Metoprolol Succinate ER 24 HR (Metoprolol Succinate ER 24 HR) 25 Mg Tab 25 MG PO DAILY Hold for SBP < 100 or heart rate < 60 chf #30 TAB Sacubitril-Valsartan (Entresto) 24-26 Mg Tab 1 TAB PO BID Hold for sbp <110 cardiomyopathy #60 TAB Sotalol (Sorine) 80 Mg Tab 120 MG PO Q12HR arrhythmia #60 TAB Continued Medications: Acetaminophen (Acetaminophen) 325 Mg Tab 325 MG PO Q4-6H PRN PAIN SCALE 1 TO 10 Ref 2 TAB Apixaban (Eliquis) 5 Mg Tab 5 MG PO BID Blood Clot Prevention #60 Ref 0 TAB Atorvastatin (Atorvastatin) 20 Mg Tab 20 MG PO HS Cholesterol Management #30 Ref 0 TAB Finasteride (Proscar) 5 Mg Tab 5 MG PO DAILY Do not crush. Manage Prostate Problems #30 Ref 0 TAB Insulin Aspart Inj (Novolog Inj) 1,000 Unit/10 Ml Vial 0 SQ DIRECTED Sliding Scale as directed. Blood Sugar Management #10 Ref 0 ML Insulin Glargine Inj (Lantus Inj) 1,000 Unit/10 Ml Vial 10 UNITS SQ HS Blood Sugar Management Ref 0 VIAL Levothyroxine (Levothyroxine) 150 Mcg Tab 150 MCG PO DAILY PRN Thyroid #30 Ref 1 TAB Ondansetron Liq (Ondansetron Liq) 4 Mg/5 Ml Soln 4 MG PO Q8H PRN NAUSEA OR VOMITING Ref 0 ML Saccharomyces Boulardii (Florastor) 250 Mg Cap 500 MG PO BID Nutritional Supplement Ref 0 CAP Discontinued Medications: Acetazolamide (Acetazolamide) 250 Mg Tab 500 MG IV DAILY #30 Ref 0 TAB Acetylcysteine Liq/Neb (Acetylcysteine Liq/Neb) 200 mg/ml Soln 4 ML NEB BID NEB Breathing Treatment Ref 0 NEBULE Furosemide (Furosemide) 40 Mg Tab 40 MG IV 06,18 #60 Ref 0 TAB Levalbuterol Neb (Xopenex Neb) 0.63 Mg/3 Ml Neb 0.63 MG NEB Q4HR NEB Breathing Treatment #120 Ref 0 NEBULE Levofloxacin Inj (Levofloxacin Inj) 250 Mg/50 Ml Bagp 250 MG IV Q24H Infection Ref 0 BAG Methylprednisolone Sod Succinate Inj (Methylprednisolone Sod Succinate Inj) 40 Mg Inj 40 MG IV Q12H Ref 0 VIAL Pantoprazole (Pantoprazole) 40 Mg Tab 40 MG PO DAILY Reflux Days 30 Ref 0 TAB Sodium Chloride Flush (Sodium Chloride Flush) 0.9 % Inj 2 ML IV FLUSH BID IV Line Flush #1 Ref 0 VIAL Lul Herron MD Sep 21, 2016 14:24
--- NOTE | 2016-09-21 15:22 | PD.CARD.PN ---
Subjective Subjective Remarks Feeling ok, no VT on tele history overnight. Objective Medications Current Medications Medications (Trade) Dose Ordered Sig/Taylor Route Start Time Stop Time Status Last Admin (Diamox) 500 mg DAILY PO 09/16/16 09:00 09/21/16 08:00 (Lipitor) 20 mg HS PO 09/16/16 21:00 09/20/16 21:22 (Proscar) 5 mg DAILY PO 09/16/16 09:00 09/21/16 08:00 (Lasix) 40 mg DAILY@06,18 PO 09/16/16 06:00 Hold 09/18/16 05:57 (Levemir Inj) 10 units HS SQ 09/16/16 21:00 09/20/16 21:00 (Synthroid) 150 mcg DAILY@0600 PO 09/16/16 06:00 09/21/16 06:00 (Zofran Liq) 4 mg Q8H PRN PO 09/15/16 23:00 (Protonix) 40 mg DAILY PO 09/16/16 09:00 09/21/16 07:59 Patient Own Medication PT OWN MED: [Florast... BID PO 09/17/16 09:00 Hold (Betapace) 120 mg Q12HR PO 09/15/16 23:00 09/21/16 07:58 (Pill Splitter) 1 ea UNSCH PRN OTHER 09/15/16 23:15 (Percocet 5-325 Mg) 1 tab Q4H PRN PO 09/18/16 08:00 09/19/16 08:19 Miscellaneous Information SPECIFIC LAB TO BE CHEMA... ONCE ONCE XX 09/22/16 04:45 09/22/16 04:46 (NS 1000 ml Inj) 1,000 ml @ 125 mls/hr Q8H IV 09/19/16 10:30 09/20/16 03:25 (Levaquin) 750 mg Q48H PO 09/21/16 11:00 09/21/16 11:31 (K-Phos Neutral) 250 mg Q8H PO 09/20/16 11:00 09/21/16 11:31 (Lasix) 40 mg DAILY PO 09/21/16 09:00 09/21/16 09:23 (Toprol Xl) 25 mg DAILY PO 09/21/16 14:00 (Entresto 24-26 Mg) 1 tab BID PO 09/21/16 11:00 Vital Signs / I&O Vital Signs Date Time Temp Pulse Resp B/P Pulse Ox O2 Delivery O2 Flow Rate FiO2 09/21/16 14:00 70 09/21/16 12:00 98.4 68 17 90/54 97 09/21/16 12:00 68 09/21/16 10:00 69 09/21/16 08:00 98.2 69 20 123/90 98 09/21/16 08:00 68 09/21/16 06:00 68 09/21/16 04:00 68 09/21/16 04:00 98.0 68 18 102/49 98 09/21/16 02:00 68 09/21/16 00:00 68 09/21/16 00:00 97.6 68 17 112/72 98 09/20/16 22:00 68 09/20/16 20:00 97.8 68 20 80/52 93 09/20/16 20:00 68 09/20/16 18:00 69 09/20/16 16:00 98.4 68 22 107/69 100 09/20/16 16:00 68 I/O 09/20/16 09/20/16 09/20/16 09/21/16 09/21/16 09/21/16 07:00 15:00 23:00 07:00 15:00 23:00 Intake Total 1164 ml 529 ml 225 ml 75 ml 740 ml Output Total 620 ml 600 ml 100 ml 350 ml Balance 544 ml -71 ml 125 ml -275 ml 740 ml Intake Oral 375 ml 350 ml 225 ml 75 ml 740 ml IV Total 789 ml 179 ml 0 ml Output Urine Total 620 ml 600 ml 100 ml 350 ml # Voids 1 1 3 # Bowel Movements 0 0 0 0 1 Physical Exam GENERAL: Well-nourished, well-developed patient. SKIN: Warm and dry. HEAD: Normocephalic. EYES: No scleral icterus. No injection or drainage. NECK: Supple, trachea midline. No JVD or lymphadenopathy. CARDIOVASCULAR: Regular rate and rhythm without murmurs, gallops, or rubs. RESPIRATORY: Breath sounds equal bilaterally. No accessory muscle use. GASTROINTESTINAL: Abdomen soft, non-tender, nondistended. EXTREMITIES: No cyanosis, or edema. NEUROLOGICAL: Awake, alert, and oriented x 3. Non-focal. Laboratory Laboratory Tests Test 09/21/16 09:11 White Blood Count 17.0 TH/MM3 Red Blood Count 4.39 MIL/MM3 Hemoglobin 12.6 GM/DL Hematocrit 38.6 % Mean Corpuscular Volume 87.9 FL Mean Corpuscular Hemoglobin 28.6 PG Mean Corpuscular Hemoglobin 32.5 % Concent Red Cell Distribution Width 18.1 % Platelet Count 74 TH/MM3 Mean Platelet Volume 10.0 FL Neutrophils (%) (Auto) 89.8 % Lymphocytes (%) (Auto) 4.3 % Monocytes (%) (Auto) 4.6 % Eosinophils (%) (Auto) 1.1 % Basophils (%) (Auto) 0.2 % Neutrophils # (Auto) 15.2 TH/MM3 Lymphocytes # (Auto) 0.7 TH/MM3 Monocytes # (Auto) 0.8 TH/MM3 Eosinophils # (Auto) 0.2 TH/MM3 Basophils # (Auto) 0.0 TH/MM3 CBC Comment AUTO DIFF Differential Total Cells 100 Counted Neutrophils % (Manual) 90 % Band Neutrophils % 1 % Lymphocytes % 5 % Monocytes % 2 % Eosinophils % 1 % Neutrophils # (Manual) 15.6 TH/MM3 Myelocytes 1 % Differential Comment FINAL DIFF MANUAL Platelet Estimate LOW Platelet Morphology Comment NORMAL Sodium Level 143 MEQ/L Potassium Level 3.7 MEQ/L Chloride Level 111 MEQ/L Carbon Dioxide Level 24.8 MEQ/L Anion Gap 7 MEQ/L Blood Urea Nitrogen 25 MG/DL Creatinine 0.91 MG/DL Estimat Glomerular Filtration 80 ML/MIN Rate Random Glucose 82 MG/DL Calcium Level 7.5 MG/DL Total Bilirubin 0.7 MG/DL Aspartate Amino Transf 15 U/L (AST/SGOT) Alanine Aminotransferase 58 U/L (ALT/SGPT) Alkaline Phosphatase 80 U/L Total Protein 4.8 GM/DL Albumin 2.2 GM/DL Imaging Last Impressions Chest X-Ray 09/18/16 0000 Signed Impressions: Service Date/Time: Sunday, September 18, 2016 09:36 - CONCLUSION: Findings very similar to prior study of 09/16/2016. Mild consolidation versus atelectasis in the right midlung. Garrett Carlton MD Assessment and Plan Problem List: (1) Sustained ventricular tachycardia Assessment and Plan: No VT overnight. On Sotalol. Can be dc'd per Dr. Calderon from EP standpoint when cleared by managing team. (2) Dilated cardiomyopathy Assessment and Plan: AICD implanted, stable. Continue optimized medications. Discussed Condition With D/W pt., RN, Dr. Fuentes, Dr. Calderon. Va Olivas Sep 21, 2016 15:22
[2016-09-21] MEDS: INSULIN DETEMIR 100 UNITS/ML VIAL SQ SCH ×3 (19:49→20:37)
[2016-09-21] MEDS: ATORVASTATIN 20 MG TAB PO SCH (20:18)
[2016-09-21] MEDS: APIXABAN 5 MG TABLET PO SCH (20:19)
[2016-09-22] VITALS (7 sets, daily range): BP systolic 88–110; BP diastolic 54–73; PULSE 68–80; RESP 16–26; TEMP 98.3–98.8; O2SAT 96–99
[2016-09-22] MEDS: POTASSIUM PHOSPHATE/SODIUM PHOSPHATE 250 MG TAB PO SCH ×2 (02:10→12:37)
[2016-09-22] MEDS: SODIUM CHLOR 0.9% 1000 ML INJ 1,000 ML IV SCH ×2 (03:25→11:25)
[2016-09-22] MEDS ORDERED: PHARMACY ORDERED LAB XX ONE (04:45)
[2016-09-22] MEDS: LEVOTHYROXINE SODIUM 150 MCG TAB PO SCH (05:09)
[2016-09-22] MEDS: FINASTERIDE 5 MG TAB PO SCH (08:48)
[2016-09-22] MEDS: FUROSEMIDE 40 MG TAB PO SCH (08:48)
[2016-09-22] MEDS: APIXABAN 5 MG TABLET PO SCH (08:48)
[2016-09-22] MEDS: METOPROLOL SUCCINATE 25 MG EXTENDED RELEASE TAB PO SCH (08:49)
[2016-09-22] MEDS: acetaZOLAMIDE 250 MG TAB PO SCH (08:49)
[2016-09-22] MEDS: PANTOPRAZOLE SOD 40 MG DELAYED RELEASE TAB PO SCH (08:49)
[2016-09-22] MEDS: SOTALOL HCL 80 MG TAB PO SCH (08:49)
[2016-09-22] MEDS: SACUBITRIL/VALSARTAN 24 MG-26 MG TAB PO SCH (08:49)
--- NOTE | 2016-09-22 11:07 | HHI.PR ---
Subjective Remarks Patient denies cp/sob no fevers or chills getting up to bathroom stable vital signs - some episodes of low bp overnight with map of 65 or more Objective Vitals Vital Signs Date Time Temp Pulse Resp B/P Pulse Ox O2 Delivery O2 Flow Rate FiO2 09/22/16 10:00 69 09/22/16 08:00 68 09/22/16 06:00 69 09/22/16 04:00 69 09/22/16 04:00 98.5 70 26 88/54 96 09/22/16 02:00 69 09/22/16 00:00 69 09/22/16 00:00 98.8 70 19 104/67 99 09/21/16 22:00 69 09/21/16 20:00 98.8 70 27 106/65 98 09/21/16 20:00 69 09/21/16 18:00 69 09/21/16 16:00 98.2 69 14 87/54 98 09/21/16 16:00 64 09/21/16 14:00 70 09/21/16 12:00 98.4 68 17 90/54 97 09/21/16 12:00 68 I/O 09/21/16 09/21/16 09/21/16 09/22/16 09/22/16 09/22/16 06:59 14:59 22:59 06:59 14:59 22:59 Intake Total 75 ml 740 ml Output Total 350 ml 450 ml 300 ml Balance -275 ml 740 ml -450 ml -300 ml Intake Oral 75 ml 740 ml Output Urine Total 350 ml 450 ml 300 ml # Voids 3 # Bowel Movements 0 1 1 Result Diagram: 09/21/16 0911 09/21/16 0911 Imaging Last Impressions Chest X-Ray 09/18/16 0000 Signed Impressions: Service Date/Time: Sunday, September 18, 2016 09:36 - CONCLUSION: Findings very similar to prior study of 09/16/2016. Mild consolidation versus atelectasis in the right midlung. Garrett Carlton MD Objective Remarks GENERAL: This is a pleasant, extremely [place] elderly male patient, in no apparent distress. SKIN: Two small fissures to medial gluteal cleft that are moisture and friction related.Periwound noted with denuded blanchable erythema. Patient also noted with small area of resolving moisture related partial thickness skin loss to R medial buttock.No pressure injuries seen at this time. HEAD: Atraumatic. Normocephalic. EYES: No scleral icterus. No injection or drainage. ENT: Nose without bleeding, purulent drainage. NECK: Trachea midline. No JVD or lymphadenopathy. CARDIOVASCULAR: Regular rate and rhythm without murmurs, gallops, or rubs. RESPIRATORY: Mild crackles at bases bilaterally. No wheezing or rhonchi auscultated. GASTROINTESTINAL: Abdomen soft, non-tender, nondistended. No guarding. MUSCULOSKELETAL: Extremities without clubbing, cyanosis, or edema. No calf tenderness. NEUROLOGICAL: Awake and alert. Motor and sensory grossly within normal limits. Normal speech. Procedures None Medications and IVs Current Medications Medications (Trade) Dose Ordered Sig/Taylor Route Start Time Stop Time Status Last Admin (Diamox) 500 mg DAILY PO 09/16/16 09:00 09/22/16 08:49 (Lipitor) 20 mg HS PO 09/16/16 21:00 09/21/16 20:18 (Proscar) 5 mg DAILY PO 09/16/16 09:00 09/22/16 08:48 (Lasix) 40 mg DAILY@06,18 PO 09/16/16 06:00 Hold 09/18/16 05:57 (Levemir Inj) 10 units HS SQ 09/16/16 21:00 09/21/16 19:49 (Synthroid) 150 mcg DAILY@0600 PO 09/16/16 06:00 09/22/16 05:09 (Zofran Liq) 4 mg Q8H PRN PO 09/15/16 23:00 (Protonix) 40 mg DAILY PO 09/16/16 09:00 09/22/16 08:49 Patient Own Medication PT OWN MED: [Florast... BID PO 09/17/16 09:00 Hold (Betapace) 120 mg Q12HR PO 09/15/16 23:00 09/22/16 08:49 (Pill Splitter) 1 ea UNSCH PRN OTHER 09/15/16 23:15 Oxycodone/ Acetaminophen 1 tab 1 tab Q4H PRN PO 09/18/16 08:00 09/19/16 08:19 (NS 1000 ml Inj) 1,000 ml @ 125 mls/hr Q8H IV 09/19/16 10:30 09/20/16 03:25 (Levaquin) 750 mg Q48H PO 09/21/16 11:00 09/21/16 11:31 (K-Phos Neutral) 250 mg Q8H PO 09/20/16 11:00 09/22/16 02:10 (Lasix) 40 mg DAILY PO 09/21/16 09:00 09/22/16 08:48 (Toprol Xl) 25 mg DAILY PO 09/21/16 14:00 09/22/16 08:49 (Entresto 24-26 Mg) 1 tab BID PO 09/21/16 11:00 09/22/16 08:49 (Eliquis) 5 mg BID PO 09/21/16 21:00 09/22/16 08:48 Urinary Catheter: No Vascular Central Line Catheter: No A/P Problem List: (1) Sepsis ICD Code: A41.9 Status: Resolved (2) Hypotension ICD Code: I95.9 Status: Acute (3) Encephalopathy acute ICD Code: G93.40 Status: Resolved (4) Non-sustained ventricular tachycardia ICD Code: I47.2 Status: Resolved (5) History of pneumonia ICD Code: Z87.01 Status: Resolved (6) Wound of skin ICD Code: R23.8 Status: Acute (7) Hypothyroidism ICD Code: E03.9 Status: Chronic (8) Atrial fibrillation ICD Code: I48.91 Status: Chronic (9) Congestive heart failure ICD Code: I50.9 Status: Chronic (10) Leukocytosis ICD Code: D72.829 Status: Resolved (11) COPD (chronic obstructive pulmonary disease) ICD Code: J44.9 Status: Chronic (12) Generalized weakness ICD Code: R53.1 Status: Acute (13) Thrombocytopenia ICD Code: D69.6 Status: Acute Assessment and Plan (1) Non-sustained ventricular tachycardia Plan: Non-Sustained ventricular tachycardia - Cardiology consulted - appreciate Dr Calderon recommendations - Stable. No VT x3 days - Continue Sotalol - Due to hypotension, will decrease dose of Toprol 25 mg daily. (2) History of pneumonia Plan: Patient has leukocytosis of 23 on admission - trending down Patchy area of infiltrate throughout the right lung, left lower lung cardiomegaly. Pulmonary following. Appreciate recommendations. Good oxygen saturation on room air. 09/19 Patient likely with HCAP - CXR shows mild consolidation 02 sat now 92% on marine, air. 09/21 Good oxygen saturation, patient on PO Levaquin. (3) Wound of skin Plan: - appreciate wound care evaluation Two small fissures to medial gluteal cleft that are moisture and friction related.Periwound noted with denuded blanchable erythema. Patient also noted with small area of resolving moisture related partial thickness skin loss to R medial buttock.No pressure injuries seen. - Calazime barrier cream bid and leave wound open to air. - Patient has some pain in wound area - Percocet added to therapy to control pain which seems better. - no signs of infection in wound (4) Hypothyroidism Plan: On levothyroxine. TSH within normal range. (5) Atrial fibrillation Plan: rate controlled. Continue with sotalol, metoprolol XL. Ventricular fibrillation with multiple pacer spikes. Fu cardiology recommendations. Pacer was adjusted on 09/16 by data center technician. Eliquis held since ablation was in consideration. On Eliquis. (6) Congestive heart failure Plan: As per cardiology report - Ef 15 to 19%. Seems to be stable. Hold lasix - due to hypotension and suspected sepsis. Acute on chronic systolic heart failure, now resolved. 09/21 IV fluids discontinued. Patient has good oxygen saturation. Resume Lasix. (7) Leukocytosis Plan: WBC 23 K on admission Trending down to 20 K today Likely due to steroid use, stres after hypotension WBC trending down - fu CBC w diff today. (8) COPD (chronic obstructive pulmonary disease) Plan: Dr Stanley from pulmonary following. 09/20 DC prednisone Repeat chest x-ray - reviewed by me shows improved congestion and mild consolidation. (9) Generalized weakness Plan: Have very long conversation with the patient's . The patient 5 very concerned that the patient is getting weaker. She also states that they would prefer to take him home. However since the patient is weak and requires help to get up, I explained to her that it is probably better for the patient to be discharged to a rehabilitation center. PT 7 days a week Patient will need rehab at rehab center - agrees with this. GI prophylaxis - PPI DVT prophylaxis - SCD's. On eliquis Discharge Planning Possible DC to rehab today if platelets stable and bp remains stable. Problem Qualifiers (1) Hypothyroidism: Qualified Code: E03.9 - Hypothyroidism, unspecified type (2) Atrial fibrillation: Qualified Code: I48.2 - Chronic atrial fibrillation (3) Congestive heart failure: Qualified Code: I50.22 - Chronic systolic congestive heart failure (4) COPD (chronic obstructive pulmonary disease): Qualified Code: J42 - Chronic bronchitis, unspecified chronic bronchitis type Lul Herron MD Sep 22, 2016 11:07
[2016-09-22 14:49] LABS: HEPARIN INDUCED PLATELET AB NEGATIVE (NEGATIVE)
== END 2016-09-22 13:35 | DRG 308 ==
LOC: HCIN 17:23 → OBSVTOIN 09-16 01:06 → N03A 09-19 12:54
PROVIDERS: ADMIT Hospitalist; ATTEND Hospitalist
DX: I47.2 Ventricular tachycardia (principal); A41.9 Sepsis, unspecified organism; G93.40 Encephalopathy, unspecified; I50.23 Acute on chronic systolic (congestive) heart failure; I95.9 Hypotension, unspecified; J18.9 Pneumonia, unspecified organism; I42.0 Dilated cardiomyopathy; D69.6 Thrombocytopenia, unspecified; J84.10 Pulmonary fibrosis, unspecified; J44.9 Chronic obstructive pulmonary disease, unspecified; Z87.01 Personal history of pneumonia (recurrent); E03.9 Hypothyroidism, unspecified; I48.91 Unspecified atrial fibrillation; R53.1 Weakness; Z95.810 Presence of automatic (implantable) cardiac defibrillator; I25.10 Atherosclerotic heart disease of native coronary artery without angina pectoris; Z95.5 Presence of coronary angioplasty implant and graft; I25.2 Old myocardial infarction; S31.809A Unspecified open wound of unspecified buttock, initial encounter; X58.XXXA Exposure to other specified factors, initial encounter; N28.9 Disorder of kidney and ureter, unspecified; R73.9 Hyperglycemia, unspecified; N40.0 Benign prostatic hyperplasia without lower urinary tract symptoms
CPT/HCPCS: 36600; 71010; 71020; 76937; 80048; 80053; 81001; 82805; 83036; 83605; 83735; 83880; 84100; 84443; 85007; 85025; 85027; 85610; 86022; 87040; 93005; G0378; J1644; J1956; J2920; J3370; J7030; J7050; J7512